=== PATIENT | male | born 1955 | race Caucasian/White ===

== ENCOUNTER 2019-06-12 09:45 | Inpatient (IN) | payer OTHER ==
--- NOTE | 2019-06-12 09:57 | ED ---
Shortness of Breath - HPI Summary HPI Summary: This pt is a 64 y/o male presenting to [facility] referred by PCP for increased SOB and left leg swelling and redness for the past couple of days. Pt reports he went to see his PCP today for left leg swelling and redness and was referred to the ED for respiratory distress. states pt has swelling in left leg that radiates up to his testicles. Pt reports his left toes are numb. Pt denies any left leg pain. Pt endorses fatigue, cough, congestion, runny nose. Denies fever , chest pain, abd pain, dysuria. Pt states he fell on ice a few weeks ago where he "landed flat on his face" and "caught left knee." He notes after his fall he initially had pain on left hand. Denies any left knee pain today. The last time he saw his PCP prior to today was 2 weeks ago and was started on diuretics (Furosemide). Today his PCP doubled his dose of diuretics. PMHx includes COPD, PE, aortic stenosis. Pt is actively smoking, his last cigarette was this morning. Pt used to take anticoagulants 5-6 years ago for about 6 months and was discontinued by his PCP. He also used to take antihypertensive medications in the past but unable to remember the name. - History of Current Complaint Chief Complaint: EDShortnessOfBreath Time Seen by Provider: 06/12/19 09:55 Hx Obtained From: Patient Onset/Duration: Lasting Days, Still Present Timing: Constant Current Severity: Moderate Dyspnea At: Rest Aggravating Factors: Nothing Alleviating Factors: Nothing Associated Signs & Symptoms: Cough (Nonproductive), Nasal Congestion, Edema - and fatigue - Allergy/Home Medications Allergies/Adverse Reactions: Allergies Allergy/AdvReac Type Severity Reaction Status Date / Time No Known Allergies Allergy Verified 06/12/19 09:50 Home Medications: Home Medications Furosemide TAB* [Lasix TAB*] 20 mg PO DAILY 06/12/19 [History Confirmed 06/12/19 ] Meloxicam(NF) [Mobic(NF)] 15 mg PO DAILY 06/12/19 [History Confirmed 06/12/19] Potassium Chlor TAB* [Klor Con ER TAB*] 10 meq PO DAILY 06/12/19 [History Confirmed 06/12/19] PMH/Surg Hx/FS Hx/Imm Hx Endocrine/Hematology History: Denies: Hx Diabetes, Hx Thyroid Disease Cardiovascular History: Reports: Other Cardiovascular Problems/Disorders - aortic stenosis Denies: Hx Hypertension Respiratory History: Reports: Hx Pneumonia - 3 years ago, Hx Pulmonary Embolism Denies: Hx Asthma, Hx Chronic Obstructive Pulmonary Disease (COPD) GI History: Denies: Hx Ulcer - Surgical History Surgical History: Yes Surgery Procedure, Year, and Place: tonsillectomy Infectious Disease History: No Infectious Disease History: Denies: Hx Clostridium Difficile, Hx Hepatitis, Hx Human Immunodeficiency Virus (HIV), History Other Infectious Disease, Traveled Outside the [place] in Last 30 Days - Family History Known Family History: Positive: Cardiac Disease, Diabetes - Social History Alcohol Use: None Substance Use Type: Reports: None Smoking Status (MU): Heavy Every Day Tobacco Smoker Type: Cigarettes Amount Used/How Often: 1ppd Review of Systems Positive: Fatigue. Negative: Fever, Chills ENT: Other - POSITIVE: congestion Positive: Nasal Discharge Negative: Chest Pain Positive: Shortness Of Breath, Cough Negative: Abdominal Pain Negative: dysuria Positive: Edema - in left leg. Negative: Other - NEGATIVE: left knee pain Skin: Other - POSITIVE: left leg redness Positive: Numbness - toes All Other Systems Reviewed And Are Negative: Yes Physical Exam - Summary Physical Exam Summary: Constitutional: Well-developed, Well-nourished, Alert. Skin: Warm, Dry. No break in the skin. HENT: Normocephalic; Atraumatic Eyes: Conjunctiva normal Neck: Musculoskeletal ROM normal neck. (-) JVD, (-) Stridor, (-) Tracheal deviation Cardio: Rhythm regular, rate normal, Heart sounds normal; Intact distal pulses; The pedal pulses are 2+ and symmetric. Radial pulses are 2+ and symmetric. Pulmonary/Chest wall: Wheezes and diminished throughout, but with prolonged expiratory phase. Abd: Periumbilical reducible hernia, otherwise soft and nontender. Musculoskeletal: bilateral lower extremity edema, more significant in the left than the right. Approximately 3 cm or more circumference of edema in left lower extremity compared to the right lower extremity. Pitting edema on left lower extremity. Left lower extremity is warm to touch. Left lower extremity is red with streaking in medial aspect of left leg. Good pulses on bilateral LE. Healed contusion to the anterior lateral left knee. Neuro: Alert, Oriented x3 Psych: Mood and affect Normal Triage Information Reviewed: Yes Vital Signs On Initial Exam: Initial Vitals Temp Pulse Resp BP Pulse Ox 97.9 F 79 26 140/90 88 06/12/19 09:45 06/12/19 09:45 06/12/19 09:45 06/12/19 09:45 06/12/19 09:45 Vital Signs Reviewed: Yes Procedures - Sedation Patient Received Moderate/Deep Sedation with Procedure: No Diagnostics - Vital Signs Vital Signs Temp Pulse Resp BP Pulse Ox 06/12/19 09:45 97.9 F 79 26 140/90 88 - Laboratory Result Diagrams: 06/12/19 10:25 06/12/19 10:25 Lab Statement: Any lab studies that have been ordered have been reviewed, and results considered in the medical decision making process. - CT Chest CTA CT Interpretation Completed By: Radiologist Summary of CT Findings: IMPRESSION: 1. Pulmonary emboli are seen in the segmental arteries perfusing the right upper and milddle lobes. 2. Coronary artery disease. Calcified aortic valve. Mitral valve annulus calcification. 3. Interstitial pulmonary edema with a small left pleural effusion. 4. Ectatic main pulmonary artery. Severe left glenohumeral osteoarthropathy. These findings were discussed with Dr. Davie Benjamin at 12:49 PM on June 12, 2019. Dr. Christianson has reviewed this report. - Ultrasound No standard instances Ultrasound Interpretation Completed By: Radiologist Summary of Ultrasound Findings: US of bilateral lower extremities IMPRESSION: No right lower extremity deep vein thrombosis. No left lower extremity deep vein thrombosis. Dr. Christianson has reviewed this report. - EKG 10:01 Cardiac Rate: NL - at 68 bpm EKG Rhythm: Sinus Rhythm Summary of EKG Findings: EKG at 10:01 shows normal sinus rhythm at a rate of [address] and T wave abnormalities in the anterior and lateral leads. No STEMI. QTc is normal. 10:46 Cardiac Rate: Bradycardia - at 57 bpm EKG Rhythm: Sinus Bradycardia EKG Comparison: Other - Compared to prior 45 minutes ago, heart rated dropped from 68 to 57 bpm. Summary of EKG Findings: EKG at 10:46 shows sinus bradycardia at a rate of [address] and T wave abnormalities in the anterior and lateral leads. No STEMI. Compared to prior 45 minutes ago, heart rated dropped from 68 to 57 bpm. Re-Evaluation - Re-Evaluation First Eval Re-Evaluation Time: 13:11 Comment: Discussed CTA results with patient. He weighs 280 lbs. Course/Dx - Course Assessment/Plan: Pt is a 64 y/o male presenting to [facility] referred by PCP for increased SOB and left leg swelling and redness for the past couple of days. PMHx includes COPD, PE, aortic stenosis. Pt is actively smoking, his last cigarette was this morning. Labs obtained. Troponin is 0.03. Two EKGs obtained and both show normal sinus rhythm with nonspecific ST and T wave abnormalities in the anterior and lateral leads. No STEMI. QTc is normal. Second EKG shows heart rate decreased from 68 to 57 bpm. US of bilateral lower extremity shows no right lower extremity deep vein thrombosis. No left lower extremity deep vein thrombosis. Chest CTA reveals 1. Pulmonary emboli are seen in the segmental arteries perfusing the right upper and milddle lobes. 2. Coronary artery disease. Calcified aortic valve. Mitral valve annulus calcification. 3. Interstitial pulmonary edema with a small left pleural effusion. 4. Ectatic main pulmonary artery. Severe left glenohumeral osteoarthropathy. In the ED course the pt was given Decadron, Atrovent, Zosyn, 127 mg Lovenox. Discussed the case with Dr. Downs, hospitalist, who accepted the patient for admission. Dx: left lower extremity cellulitis, worsening peripheral edema likely secondary to newly diagnosed CHF, pulmonary emboli. - Diagnoses Provider Diagnoses: Cellulitis of left lower extremity, Peripheral edema, Pulmonary emboli - Physician Notifications Discussed Care of Patient With: Lamont Downs - hospitalist Time Discussed With Above Provider: 13:39 Discharge ED - Sign-Out/Discharge Documenting (check all that apply): Patient Departure - Admit to [facility] - Discharge Plan Condition: Stable Disposition: ADMITTED TO [facility] - Billing Disposition and Condition Condition: STABLE Disposition: Admitted to [facility] - Attestation Statements Document Initiated by Scribe: Yes Documenting Scribe: Sheri Chaves Provider For Whom Paola is Documenting (Include Credential): Balaji Christianson MD Scribe Attestation: Sheri Begum scribed for Balaji Christianson MD on 06/12/19 at 1842. Scribe Documentation Reviewed: Yes Provider Attestation: The documentation as recorded by the scribe, Sheri Chaves accurately reflects the service I personally performed and the decisions made by me, Balaji Christianson MD Status of Scribe Document: Viewed
[2019-06-12] MEDS ORDERED: Dexamethasone IV* 4 MG/ML 5 ML VIAL (20 MG) IVPB ONE (10:10)
[2019-06-12] MEDS: Ipratropium 0.5MG/2.5ML NEB* 0.5 MG/2.5 ML NEB.SOLN INH SCH ×3 (10:35→10:43)
[2019-06-12 10:41] LABS: Activated Partial Thrombo Time 35.1 seconds (26.0-38.0); INR 0.96 (0.82-1.09)
[2019-06-12] MEDS ORDERED: Piperacillin/Tazobac ADVAN(*) 3.375 GM in NS 0.9% 100 ML* 100 ML IVPB ONE (10:43)
[2019-06-12 10:49] LABS: BUN/Creatinine Ratio 22.9 (8-20); Calcium 8.2 mg/dL (8.6-10.3); EGFR African American 137.8 (>60); EGFR Non-African American 113.9 (>60); Magnesium 1.9 mg/dL (1.9-2.7); Potassium 4.5 mmol/L (3.5-5.0)
[2019-06-12 10:54] LABS: Troponin I 0.03 ng/mL (<0.03)
[2019-06-12 10:59] LABS: ABS Eosinophils 0.2 10^3/ul (0-0.6); ABS Lymphocytes 0.9 10^3/ul (1.0-4.8); ABS Monocytes 0.8 10^3/ul (0-0.8); ABS Neutrophils 4.3 10^3/ul (1.5-7.7); Eosinophil % 2.6 %; Hematocrit 39 % (42-52); Hemoglobin 12.9 g/dL (14.0-18.0); Lymphocyte % 14.6 %; Mean Corpuscular HGB Conc 34 g/dL (31-36); Mean Corpuscular Hemoglobin 30 pg (27-31); Mean Corpuscular Volume 91 fL (80-94); Mean Platelet Volume 8.5 fL (7.4-10.4); Platelet Count 168 10^3/uL (150-450); Red Blood Count 4.27 10^6 /uL (4.18-5.48); Red Cell Distribution Width 18 % (10-15); White Blood Count 6.2 10^3/uL (3.5-10.8)
[2019-06-12] MEDS ORDERED: Iohexol 350* (CONTRAST) 500 ML MDV IV ONE (11:59)
[2019-06-12] MEDS ORDERED: Enoxaparin(*) 150 MG/ML 1 ML SYRINGE SUBCUT ONE (13:11)
[2019-06-12] MEDS ORDERED: Perflutren Lipid Microsphere* 3 ML VIAL ONE (15:02)
[2019-06-12] MEDS ORDERED: Furosemide IV* 10 MG/ML VIAL (40 MG) IV ONE (15:10)
[2019-06-12] MEDS ORDERED: Magnesium Sulfate 1 GM IV* 1 GM/100 ML BAG IV ONE (15:14)
[2019-06-12 15:49] LABS: C Reactive Protein 16.71 mg/L (<8.01)
[2019-06-12] MEDS ORDERED: Albuterol/Ipratropium NEB.SOL* Albuterol 2.5 MG/Ipratropium 0.5 MG 3 ML INH PRN (17:17)
--- NOTE | 2019-06-12 17:30 | ECHO ---
*[facility]* [place] [address] Fax #: [phone] Transthoracic Echocardiogram Patient: Gray Esquivel : 1955 Study Date: 06/12/2019 Age: 64 Gender: M HR: 57 bpm Height: 74 in /188 cm BSA: 2.51 m^2 Weight: 280.4 lb /127.5 kg BMI: 36.1 kg/m^2 *Occupational Therapist Assistants: * Yumiko Vasquez RDCS RN *Referring Physician: * Lamont Downs *Reading Physician: * Phil Arenas MD Indications: SOB. Pulmonary embolism. History: Aortic stenosis. COPD. Pulmonary Embolism. Risk factors: Current tobacco use. Obese. Conclusions Summary: - Left ventricle: The cavity size is normal. Wall thickness is mildly increased. Systolic function is normal. The estimated ejection fraction is 60-65%. Wall motion is normal; there are no regional wall motion abnormalities. - Right ventricle: The cavity size is normal. Systolic function is normal. - Left atrium: The atrium is moderately dilated. - Mitral valve: The findings are consistent with mild stenosis. The mean diastolic gradient is 4.0 mm Hg. - Aortic valve: A bicuspid morphology cannot be excluded. The leaflets are moderately thickened and moderately calcified. The findings are consistent with severe stenosis. The peak systolic velocity is 4.32 m/sec. The mean systolic gradient is 44.7 mm Hg. The valve area index by the velocity-time integral method is 0.41 cm^2/m^2. - Tricuspid valve: There is mild regurgitation. - Pulmonary arteries: Systolic pressure is severely increased, estimated to be 68 mm Hg. Recommendations: Compared to prior study from 12/2018, findings are similar Study data: Transthoracic echocardiogram. Procedure: Transthoracic echocardiography was performed. Complete 2D, spectral Doppler, and color flow Doppler. Location: Procedure room. Rhythm: Bradycardia. Findings Left ventricle: The cavity size is normal. Wall thickness is mildly increased. Systolic function is normal. The estimated ejection fraction is 60-65%. Wall motion is normal; there are no regional wall motion abnormalities. Doppler parameters are consistent with abnormal left ventricular relaxation (grade 1 diastolic dysfunction). Right ventricle: The cavity size is normal. Systolic function is normal. Left atrium: The atrium is moderately dilated. Right atrium: The atrium is mildly to moderately dilated. Mitral valve: Not well visualized. The Mitral valve annulus appears moderately calcified. The findings are consistent with mild stenosis. There is mild regurgitation. Aortic valve: A bicuspid morphology cannot be excluded. The leaflets are moderately thickened and moderately calcified. The findings are consistent with severe stenosis. There is mild regurgitation. Tricuspid valve: Not well visualized. There is mild regurgitation. Pulmonic valve: Not well visualized. There is no significant regurgitation. Aorta: Aortic root: The aortic root is not dilated. Ascending aorta: The ascending aorta is not visualized. Aortic arch: The aortic arch is not dilated. Pericardium: There is no significant pericardial effusion. Pulmonary arteries: Not well visualized. Systolic pressure is severely increased, estimated to be 68 mm Hg. Systemic veins: Inferior vena cava: The vessel is dilated. There is (< 50%) respiratory change in the IVC dimension. Measurements Left ventricle Value Ref Aortic valve Value Ref CRISTIANO, LAX 4.8 cm 4.2 - 5.8 Carol diam, ED 2.4 cm ----- ESD, LAX 3.8 cm 2.5 - 4.0 Carol diam/bsa, ED 1.0 cm/m^2 ----- FS, LAX (L) 21 % 25 - 43 Peak v, S 4.32 m/sec ----- PW, ED (H) 1.2 cm 0.6 - 1.0 VTI, S 123.4 cm ----- IVS/PW, ED 0.91 Mean grad, S 44.7 mm Hg ----- E', lat carol, TDI (L) 6.9 cm/sec >=10.0 Peak grad, S 74.7 mm Hg ----- E/e', lat carol, 26 LVOT/AV, VTI ratio 0.29 --- -- TDI NOEL, VTI 1.02 cm^2 ----- E', med carol, TDI (L) 6.6 cm/sec >=7.0 NOEL/bsa, VTI 0.41 cm^2/m^2 ----- E/e', med carol, 27 NOEL, Vmax 1.10 cm^2 --- -- TDI AR peak v 4.43 m/sec ----- E', avg, TDI 6.8 cm/sec AR PHT 528 ms --- -- E/e', avg, TDI (H) 26 <=14 AR peak grad 78 mm Hg ----- LVET 400 ms Mitral valve Value Ref LVOT Value Ref Peak E 1.77 m/sec ----- Diam, S 2.10 cm Peak A 1.32 m/sec ----- Area 3.5 cm^2 Decel time 394 ms ----- Peak oswaldo, S 1.37 m/sec PHT 139 ms ----- VTI, S 36.4 cm Mean grad, D 4.0 mm Hg ----- Peak grad, S 7 mm Hg Peak grad, D 13.0 mm Hg ----- Mean grad, S 5 mm Hg Peak E/A ratio 1.3 ----- SV 155 ml MVA, PHT 1.6 cm^2 ----- SV/bsa 62 ml/m^2 Pulmonic valve Value Ref Ventricular septum Value Ref Peak v, S 1.29 m/sec ----- IVS, ED (H) 1.1 cm 0.6 - 1.0 Peak grad, S 7.0 mm Hg ----- Right ventricle Value Ref Tricuspid valve Value Ref AW thickness, ED (H) 1.0 cm 0.1 - 0.5 TR peak v (H) 3.65 m/sec <=2.8 CRISTIANO, LAX 3.6 cm Peak RV-RA grad, S 53 mm Hg ----- CRISTIANO minor ax, A4C (H) 3.8 cm 1.9 - 3.5 mid Aortic root Value Ref Pressure, S 68 mm Hg Root diam 3.4 cm <4.5 Left atrium Value Ref Aortic arch Value Ref AP dim, ES (H) 5.20 cm 3.00 - Arch diam 2.8 cm ----- 4.00 ML dim, A4C 4.4 cm Decending aorta Value Ref SI dim, A4C 7.0 cm Dayanna peak oswaldo 1.02 m/sec ----- Vol/bsa, ES, 1-p 37 ml/m^2 12 - 37 A4C Pulmonary artery Value Ref Vol/bsa, ES, A/L (H) 47 ml/m^2 16 - 34 Pressure, S 68.0 mm Hg ----- Right atrium Value Ref Inferior vena cava Value Ref SI dim, ES (H) 6.2 cm 3.4 - 5.3 Diam 3.0 cm ----- ML dim, ES, A4C (H) 5.9 cm 2.6 - 4.4 SI dim, ES, A4C (H) 6.2 cm 3.4 - 5.3 SI dim/bsa, ES, 2.5 cm/m^2 1.8 - 3.0 A4C Estimated RAP 15 mm Hg Legend: (L) and (H) ambreen values outside specified reference range. Prepared and electronically signed by Phil Arenas MD 06/12/2019 17:30
--- NOTE | 2019-06-12 19:08 | HP ---
HISTORY AND PHYSICAL: DATE OF ADMISSION: 06/12/19 ADMITTING PROVIDER: Lamont Downs MD. PRIMARY CARE PROVIDER: Dr. Acosta. CHIEF COMPLAINT: Left lower extremity swelling, redness, warmth; shortness of breath. HISTORY OF PRESENT ILLNESS: Gray Esquivel is a 64-year-old male with past medical history of severe aortic stenosis, hypertension, obesity, and current longtime smoker. He also has a history of pulmonary embolism, for which he was on warfarin for between 6 and 8 months. This was after the setting when he developed aspiration pneumonia and was at [facility] for 9 days before being transferred up to [facility] for 14 days. Sounds like it was thought to be provoked. The patient is a poor historian in terms of time, but at some point before 05/06/19, he fell and slipped on ice onto his left side, developed substantial bruising and then swelling, redness on his lower left leg. He eventually saw Dr. Acosta on likely 05/06/19 and was started on doxycycline 100 mg p.o. b.i.d. for 14 days. On 05/13/19, he was started on Lasix 20 mg every day for also swelling. He says that the redness seemed to improve a little bit after the doxy. For the last 2 days now, he has had increased lower extremity edema in both legs, initially the left one was much bigger and still is actually. He followed up in his primary care office today and was found to be more edematous, was told to increase his Lasix to 40 mg a day and was sent to the ER for further evaluation. 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 He was evaluated by Dr. Arenas after an echo on 01/20/19 showed EF of 60% to 65% with severe aortic stenosis and aortic valve area of 0.47. He had a stress echo on 02/05/19, which was stopped early because of bilateral leg fatigue, he achieved 4.6 METs and was of note referred to Dr. Vaca. It does not seem like he has followed up with Dr. Vaca or necessarily known about that recommendation. His initial workup in the emergency room included a CT chest angiogram, which did demonstrate pulmonary emboli seen in the segmental arteries perfusing the right upper and middle lobes , also interstitial pulmonary edema with small left pleural effusion. He was started on 1 mg/kg Lovenox and given concern for angry appearing left leg with warmth and redness, Zosyn and was referred to the hospitalist service for admission. BNP has since returned at 299, CRP 16. He had ABG, which showed 7.36, pCO2 of 54, pO2 of 54, bicarb 27.4. Additionally in the emergency room, he got 3 DuoNeb, which he did feel helped his breathing. He also had duplex Dopplers which showed negative, no evidence of DVT in either leg. PAST MEDICAL HISTORY: Severe aortic stenosis, hypertension, obesity, current smoker, remote likely provoked PE in the setting of prolonged illness, diabetes. MEDICATIONS: 1. The patient was recently prescribed lisinopril 10 mg today. He has never taken this. 2. Potassium chloride 10 mEq, also prescribed today. 3. Meloxicam 15 mg every day. 4. Lasix recently increased from 20 mg he stated to 40 mg, he has not made that switch yet as it just happened today. FAMILY HISTORY: His father of diabetic complications in his 50s. His mother is 88 and a picture of health. He has 2 sisters, 1 with diabetes and 1 with resolved diabetes. They have 3 daughters that are healthy. 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 He does not drink alcohol. No drug use. He desires to be a full code. His medical surrogate is his Maeve Esquivel. He is a 1 pack per day smoker for the last 30 years. REVIEW OF SYSTEMS: A complete 14-point review of systems negative except as per HPI. He does have somewhat chronic cough. It is usually nonproductive. He denies any chest pain, abdominal pain. PHYSICAL EXAMINATION GENERAL APPEARANCE: No acute distress. VITAL SIGNS: Temperature 97.9; pulse rate 53; respiratory rate 14; satting initially 88% on room air, now 93% to 96% on 2 L; blood pressure 150/66. HEENT: Normocephalic, atraumatic. Pupils equal, round, and reactive to light. Extraocular motions intact. No scleral icterus. LUNGS: Decreased breath sounds. No clear rhonchi, rales, or wheezing. CARDIO: Regular rate and rhythm. No murmurs, rubs, or gallops. ABDOMEN: Soft, nontender, nondistended. No rebound. No guarding. EXTREMITIES: Warm, well perfused. There is 1 to 2+ pitting edema in the right leg and 2+ pitting edema in the left leg extending up to above the thigh. There is some redness and warmth, most prominent behind the left knee. There is some purplish discoloration of the right second and third toe bases superiorly. NEURO: Cranial nerves II through XII intact. Moving all extremities. DIAGNOSTIC STUDIES/LAB DATA: White count 6.2, hemoglobin 12.9, hematocrit 39, platelets 168. INR 0.96. VBG; pH 7.36, pCO2 of 54, pO2 of 54, bicarb 27.4. Sodium 140, potassium 4.5, chloride 107, carbon dioxide 31, BUN 16, creatinine 0.70, glucose 101, calcium 8.2, magnesium 1.9. Troponin 0.03 and return 0.02, CRP 16.7, BNP is 299. Imaging: CTA chest shows impression: 1. Pulmonary emboli seen in the segmental arteries perfusing the right upper and middle lobes. 2. Coronary artery disease, calcified aortic valve, mitral valve annulus calcification. 3. Interstitial pulmonary edema with small left pleural effusion. 4. Ectatic main pulmonary artery. 5. Severe left glenohumeral osteoarthropathy. Duplex Doppler shows no right or left lower deep vein thrombosis. EKG demonstrated normal sinus rhythm with PVCs. No ST elevations or depressions. Repeat shows sinus bradycardia, there is kind of a borderline [address] elevation in II and aVF. ASSESSMENT AND PLAN: Gray Esquivel is a 64-year-old male with past medical history of known severe aortic stenosis, 30-pack year smoking, and hypertension , presenting with increased lower extremity edema now bilaterally with some warmth and erythema despite outpatient doxycycline about a month ago for 14 days , also short of breath with evidence of segmental pulmonary embolism in the right upper and middle lobes and BNP elevation to 299 with evidence of volume overload. He is actually a diabetic with A1c of 6.6 on 12/16/18. 1. Pulmonary embolism. He has been started on Lovenox 1 mg/kg twice a day. I am going to continue that for now. We will follow up echocardiogram. He does have elevated troponin and BNP. 2. Aortic stenosis, last known was severe back on 01/20/19. He has had echocardiogram repeated here. I am concerned about his increased shortness of breath, edema, and presyncopal like episodes. He likely needs evaluation for TAVR with Dr. Vaca, which has been recommended in the past. I will follow formal echocardiogram results. 3. Congestive heart failure/volume overload. I am going to cautiously diurese him given his known aortic stenosis with 40 mg IV now and monitor his response to that. Strict I's and O's and daily weights. 4. Mild cellulitis on the left lower extremity. Reportedly, this has improved substantially since he took his 1 dose of Zosyn in the emergency room. He still some slight warmth behind the left knee and some erythema. I am going to change him to cefazolin 2 g for q.8 hours given his body size greater than 120 kg. 5. Smoking. Give him a nicotine patch. Encouraged cessation. He has never had pulmonary function tests done. He does have a chronic cough. He is on no inhalers. I will add Dulera and Spiriva and recommend PFTs as an outpatient. 6. Hypertension. He is in 150s here, as high as 182/115. Recently started on lisinopril. I am going to hold off that until tomorrow. Given the diuresis, I do not want to drop his preload too much. 7. Code status: He is a full code. 8. Diabetes. Per A1c criteria in November. He just uses diet. He did have hyperglycemia here, put him on some fingersticks and repeat A1c. 9. FEN: He can eat a heart-healthy diet, carbohydrate consistent. [id number]/[facility] #: [id number] [facility]
[2019-06-12] MEDS: Mometasone/Formoter 200/5 MDI INH SCH (19:55)
[2019-06-12] MEDS: ceFAZolin 2 GM PREMIX in ORs 2 GM/50 ML BAG IVPB SCH (21:39)
[2019-06-12] MEDS: Nicotine Patch Removal NOTE FOLLOW UP SCH (21:39)
[2019-06-13] MEDS: Enoxaparin(*) 100 MG/ML SYR SUBCUT SCH ×2 (03:05→14:08)
[2019-06-13] MEDS: ceFAZolin 2 GM PREMIX in ORs 2 GM/50 ML BAG IVPB SCH ×3 (06:03→21:10)
[2019-06-13 06:51] LABS: Hematocrit 39 % (42-52); Hemoglobin 12.6 g/dL (14.0-18.0); Mean Corpuscular HGB Conc 33 g/dL (31-36); Mean Corpuscular Hemoglobin 30 pg (27-31); Mean Corpuscular Volume 91 fL (80-94); Red Blood Count 4.23 10^6 /uL (4.18-5.48); Red Cell Distribution Width 17 % (10-15)
[2019-06-13 07:07] LABS: BUN/Creatinine Ratio 20.6 (8-20); Calcium 8.7 mg/dL (8.6-10.3); EGFR African American 142.5 (>60); EGFR Non-African American 117.8 (>60); Potassium 4.2 mmol/L (3.5-5.0)
[2019-06-13 07:26] LABS: ABS Lymphocytes 0.7 10^3/ul (1.0-4.8); ABS Monocytes 0.7 10^3/ul (0-0.8); ABS Neutrophils 5.5 10^3/ul (1.5-7.7); Eosinophil % 0.4 %; Lymphocyte % 10.7 %; Mean Platelet Volume 8.6 fL (7.4-10.4); Platelet Count 146 10^3/uL (150-450)
[2019-06-13] MEDS: Mometasone/Formoter 200/5 MDI INH SCH ×2 (07:53→19:36)
[2019-06-13] MEDS: SPIRIVA Respimat* (tiotropium) 2.5 mcg/inh Inhaler INH SCH (07:54)
[2019-06-13] MEDS: Nicotine PATCH 14 MG/24 HR* PATCH TRANSDERM SCH (08:35)
[2019-06-13] MEDS ORDERED: Furosemide IV* 10 MG/ML VIAL (40 MG) IV ONE (12:35)
--- NOTE | 2019-06-13 18:25 | PN ---
Subjective Date of Service: 06/13/19 Interval History: no acute events overnight, afebrile feeling much better, breathing is easier. Less redness/warmth to left lower leg. net negative 2.1L with diuresis. [employer] stable. no chest pain, f/c/n/v, abdominal pain. cardiology consulted (Dr. Arenas who is his outpatient senior account clerk) Objective Active Medications: Acetaminophen (Tylenol Tab*) 650 mg PO Q6H PRN PRN Reason: PAIN - MILD Albuterol/Ipratropium (Duoneb (Albuterol 2.5 Mg/Ipratropium 0.5 Mg)) 1 neb INH Q4H PRN PRN Reason: SOB/WHEEZING Enoxaparin Sodium (Lovenox(*)) 130 mg SUBCUT Q12H [facility] Last Admin: 06/13/19 14:08 Dose: 130 mg Cefazolin Sodium/Dextrose (Kefzol 2 Gm Premix In Ors(*)) 2 gm in 50 mls @ 100 mls/hr IVPB Q8HR [facility] Last Admin: 06/13/19 14:09 Dose: 100 mls/hr Mometasone Furoate/Formoterol Fumar (Dulera 200/5 Mdi*) 2 puff INH BID [facility] Last Admin: 06/13/19 07:53 Dose: 2 puff Nicotine (Nicotine Patch 14 Mg/24 Hr*) 1 patch TRANSDERM DAILY [facility] Last Admin: 06/13/19 08:35 Dose: 1 patch Pharmacy Profile Note (Nicotine Patch Removal Note*) 1 note FOLLOW UP 2100 [facility] Last Admin: 06/12/19 21:39 Dose: Not Given Tiotropium [place] (Spiriva Respimat 2.5 Mcg) 2 puff INH DAILY [facility] Last Admin: 06/13/19 07:54 Dose: 2 puff Vital Signs - 8 hr 06/13/19 06/13/19 11:15 15:15 Temperature 97.7 F Pulse Rate 64 58 Respiratory 20 18 Rate Blood Pressure 147/87 142/68 (mmHg) O2 Sat by Pulse 96 93 Oximetry Oxygen Devices in Use Now: None Appearance: NAD Neck: NL Appearance and Movements; NL JVP Respiratory: Symmetrical Chest Expansion and Respiratory Effort, Clear to Auscultation Abdominal: NL Sounds; No Tenderness; No Distention Extremities: - - 2+ edema b/l Skin: - - largely resolved erythema and only minimal warmth on left lower extremity Neurological: Alert and Oriented x 3 Nutrition: Taking PO's Result Diagrams: 06/13/19 06:31 06/13/19 06:31 Additional Lab and Data: Laboratory Results - last 24 hr 06/12/19 06/13/19 06/13/19 10:25 06:31 06:31 WBC 7.0 RBC 4.23 Hgb 12.6 L Hct 39 L MCV 91 MCH 30 MCHC 33 RDW 17 H Plt Count 146 L MPV 8.6 Neut % (Auto) 79.0 Lymph % (Auto) 10.7 Giles % (Auto) 9.7 Eos % (Auto) 0.4 Baso % (Auto) 0.2 Absolute Neuts (auto) 5.5 Absolute Lymphs (auto) 0.7 L Absolute Monos (auto) 0.7 Absolute Eos (auto) 0.0 Absolute Basos (auto) 0.0 Absolute Nucleated RBC 0.0 Nucleated RBC % 0.0 Sodium 139 Potassium 4.2 Chloride 104 Carbon Dioxide 29 Anion Gap 6 BUN 14 Creatinine 0.68 Est GFR ( Amer) 142.5 Est GFR (Non-Af Amer) 117.8 BUN/Creatinine Ratio 20.6 H Glucose 120 H Calcium 8.7 NT-Pro-B Natriuret Pep 1425 H Microbiology and Other Data: Microbiology 06/12/19 10:51 Blood Venous Aerobic Blood Culture - Preliminary No Growth Day 1 06/12/19 10:51 Blood Venous Anaerobic Blood Culture - Preliminary No Growth Day 1 Assess/Plan/Problems-Billing Assessment: 64 yo male PMH severe aortic stenosis, HTN, obesity, long time smoker (likely undiagnosed COPD), presenting from PCP office with progressive edema, left leg cellultitis (since a mechanical fall on ice) and shortness of breath. Found to have segmental pulmonary embolisms and be in acute HFpEF exaccerbation on baseline of likely increasingly symptomatic aortic stenosis (often pre-syncopal , HOOD). Planned C 06/16 in anticipation of need for aortic surgery. Diuresing. - Patient Problems (1) Severe aortic stenosis Current Visit: Yes Status: Acute Code(s): I35.0 - NONRHEUMATIC AORTIC (VALVE ) STENOSIS SNOMED Code(s): 76811358 Comment: Repeat ECHO still shows severe (NOEL 0.41, can't exclude bicuspid) . Has been having frequent presyncopal events, especially if he reaches above his head. HOOD. Consulted with Dr. Arenas who is also his outpatient senior account clerk and recommendation is to pursue LHC with anticipation that he may need TAVR or other aortic valve intervention in coming weeks. (2) Pulmonary emboli Current Visit: Yes Status: Acute Code(s): I26.99 - OTHER PULMONARY EMBOLISM WITHOUT ACUTE COR PULMONALE SNOMED Code(s): 96964023 Comment: Was started on lovenox 1 mg/kg in ED and this was continued. Dr. Arenas recommended to continue this until potential LHC on Saturday 06/16 after which he can likely be transitioned to a DOAC. Duplex dopplers without DVT b/l (3) (HFpEF) heart failure with preserved ejection fraction Current Visit: Yes Status: Acute Code(s): I50.30 - UNSPECIFIED DIASTOLIC ( CONGESTIVE) HEART FAILURE SNOMED Code(s): 028266943 Comment: got 40mg IV lasix on admission and again today. Net negative 2.1L with very dilute urine. Significant lower extremity edema. Daily weights, strict ios (4) Cellulitis Current Visit: Yes Status: Acute Code(s): L03.90 - CELLULITIS, UNSPECIFIED SNOMED Code(s): 798963553 Comment: had been treated for 14 days with doxy as an outpatient. Got 1 dose zosyn in ED (afterwhich time the erythema and warmth were modest though reportedly more angry appearing prior to the zosyn. Continue cefazolin for now with transition to keflex likely soon. (5) Acute respiratory failure with hypoxia Current Visit: Yes Status: Acute Code(s): J96.01 - ACUTE RESPIRATORY FAILURE WITH HYPOXIA SNOMED Code(s): 54756123 Comment: improving. secondary to PE, acute HFpEF, severe pHTN (RVSP 68mmHg) and also likely has undiagnosed COPD given substantial and current smoking with chronic cough. new dulera, spiriva. duonebs q4h prn. (6) Smoker Current Visit: Yes Status: Acute Code(s): F17.200 - NICOTINE DEPENDENCE, UNSPECIFIED, UNCOMPLICATED SNOMED Code(s): 90781196 Comment: nicotine patch. Status and Disposition: medicine inpatient, planned LHC on 06/16. Independent with likely disposition being home.
--- NOTE | 2019-06-13 18:57 | CONSULT ---
Subjective Date of Service: 06/13/19 Interval History: Admission Date: 06/12/19 Consult date 06/13/2019 Service: Hospitalist PRIMARY CARE PROVIDER: Dr. Acosta CC: Shortness of breath, edema Reason for consult: Aortic stenosis HISTORY OF PRESENT ILLNESS: Gray Esquivel is a 64-year-old man with a history as below known to me from outpatient cardiology practice. He states he had been doing well until 5 weeks ago when he slipped and fell and ice/leaves. He regularly took nsaids prior to that but increased dosing to 1200 mg daily of ibuprofen until recently when pain started subsiding. He had also been on meloxicam. Tylenol is ineffective of pain. About that time he noticed left leg swelling that has progressed. He had an outpatient course of antibiotics and doxycycline for the left leg and was also plaed on lasix 20 mg daily. 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 His left leg had swollen in the past but recently right leg started swelling. He has no chest discomfort or exertional presyncope/syncope. He does get lightheaded if lifts his arms above his head head. Patient saw Dr. Acosta day of admission and now found with volume overload, left leg cellulitis and pulmonary embolism. He has received IV lasix , therapeutic lovenox and IV antibiotics and edema and breathing have improved. Pmhx 1. Severe aortic stenosis 2. HFpEF 3. Severe pulmonary hypertension 4. Obesity 5. Pulmonary embolism bilateral 01/2013 in setting of drug abuse, aspiration pneumonia and hemorrhagic left sided pleural effusion. Had been on warfarin for 6+ months at that time. 6. Osteoarthritis 7. 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 remote drug abuse no current alcohol abuse is Maeve Esquivel FAMILY HISTORY: Father age 66 heart disease and diabetes, details uncertain PGF of heart disease in 50's, details uncertain Allergies: NKDA Medications Active Medications: Acetaminophen (Tylenol Tab*) 650 mg PO Q6H PRN PRN Reason: PAIN - MILD Albuterol/Ipratropium (Duoneb (Albuterol 2.5 Mg/Ipratropium 0.5 Mg)) 1 neb INH Q4H PRN PRN Reason: SOB/WHEEZING Enoxaparin Sodium (Lovenox(*)) 130 mg SUBCUT Q12H [facility] Last Admin: 06/13/19 14:08 Dose: 130 mg Cefazolin Sodium/Dextrose (Kefzol 2 Gm Premix In Ors(*)) 2 gm in 50 mls @ 100 mls/hr IVPB Q8HR [facility] Last Admin: 06/13/19 14:09 Dose: 100 mls/hr Mometasone Furoate/Formoterol Fumar (Dulera 200/5 Mdi*) 2 puff INH BID [facility] Last Admin: 06/13/19 07:53 Dose: 2 puff Nicotine (Nicotine Patch 14 Mg/24 Hr*) 1 patch TRANSDERM DAILY [facility] Last Admin: 06/13/19 08:35 Dose: 1 patch Pharmacy Profile Note (Nicotine Patch Removal Note*) 1 note FOLLOW UP 2100 [facility] Last Admin: 06/12/19 21:39 Dose: Not Given Tiotropium [place] (Spiriva Respimat 2.5 Mcg) 2 puff INH DAILY [facility] Last Admin: 06/13/19 07:54 Dose: 2 puff Home Medications: Furosemide TAB* [Lasix TAB*] 20 mg PO DAILY 06/12/19 [History Confirmed 06/12/19 ] Meloxicam(NF) [Mobic(NF)] 15 mg PO DAILY 06/12/19 [History Confirmed 06/12/19] Potassium Chlor TAB* [Klor Con ER TAB*] 10 meq PO DAILY 06/12/19 [History Confirmed 06/12/19] Review of Systems - Measurements Intake and Output: Intake and Output Last 24 Hours 06/11/19 06/12/19 06/13/19 06/14/19 06:59 06:59 06:59 06:59 Intake Total 700 0 Output Total 2870 800 Balance -2170 -800 Weight 275 lb 12.8 oz Intake: IV Fluids 160 IVPB 100 Oral 440 0 Output: Urine 2870 800 Other: Estimated Void Large # Voids 2 - Review of Systems Constitutional Symptoms: Negative: Weight Gain, Weight Loss, Fever, Night Sweats Dermatology: Negative: Rash, Skin Lesions HEENT: Negative: Change in Hearing, Vertigo Eyes: Negative: Change in Vision, Double Vision Thyroid: Negative: Cold Intolerance, Heat Intolerance, Weight Loss, Weight Gain Pulmonary: Positive: Shortness of Breath, Exercise Intolerance Negative: Hemoptysis, Asthma, Home Oxygen Cardiology: Positive: Shortness of Breath, Edema Negative: Chest Pain, Palpitations, Swelling of Ankles, Peripheral Vascular Dis, Syncope, Paroxysmal Nocturnal Dyspnea, Orthopnea Gastroenterology: Negative: Blood in Stools, Haematemesis, Melena Genital - Urinary: Negative: Dysuria, Hematuria Musculoskeletal: Negative: Joint Pain, Joint Stiffness Review of Systems Statement: All other review of systems negative, unless stated above. Objective Vital Signs: Temp Pulse Resp BP Pulse Ox 97.7 F 58 18 142/68 93 06/13/19 15:15 06/13/19 15:15 06/13/19 15:15 06/13/19 15:15 06/13/19 15:15 Oxygen Devices in Use Now: None Appearance: nad, very pleasant Ears/Nose/Mouth/Throat: Clear Oropharnyx, Mucous Membranes Moist Neck: Trachea Midline, - - uncertain jvp Respiratory: Symmetrical Chest Expansion and Respiratory Effort, Clear to Auscultation Cardiovascular: RRR, - - 3/6 high pitched murmur with soft singular s2 Abdominal: - - soft, obese Extremities: No Clubbing, Cyanosis, - - 2+ left leg edema with erythema, 1+ right leg edema Neurological: Alert and Oriented x 3 Laboratory Results: 06/13/19 06:31 06/13/19 06:31 INR (Anticoag Therapy) 0.96 (0.82-1.09) 06/12/19 10:25 APTT 35.1 seconds (26.0-38.0) 06/12/19 10:25 B-Natriuretic Peptide 299 pg/mL (<=100) H 06/12/19 10:25 06/12/19 06/12/19 06/12/19 10:25 16:15 18:54 Troponin I 0.03 H* 0.02 0.01 Diagnostic Imagin01/2019: 4.6 mets limited by leg discomfort, BP constanza appropriately and LVEf hyperdynamic post-stress 06/12/2019 Transthoracic Echocardiogram Summary: - Left ventricle: The cavity size is normal. Wall thickness is mildly increased. Systolic function is normal. The estimated ejection fraction is 60-65%. Wall motion is normal; there are no regional wall motion abnormalities. - Right ventricle: The cavity size is normal. Systolic function is normal. - Left atrium: The atrium is moderately dilated. - Mitral valve: The findings are consistent with mild stenosis. The mean diastolic gradient is 4.0 mm Hg. - Aortic valve: A bicuspid morphology cannot be excluded. The leaflets are moderately thickened and moderately calcified. The findings are consistent with severe stenosis. The peak systolic velocity is 4.32 m/sec. The mean systolic gradient is 44.7 mm Hg. The valve area index by the velocity-time integral method is 0.41 cm^2/m^2. - Tricuspid valve: There is mild regurgitation. - Pulmonary arteries: Systolic pressure is severely increased, estimated to be 68 mm Hg. Exam Date: 06/12/19 CTA CHEST IMPRESSION: 1. Pulmonary emboli are seen in the segmental arteries perfusing the right upper and middle lobes. 2. Coronary artery disease. Calcified aortic valve.. Mitral valve annulus calcification. 3. Interstitial pulmonary edema with a small left pleural effusion. 4. Ectatic main pulmonary artery. Severe left glenohumeral osteoarthropathy. Exam Date: 06/12/19 IMPRESSION: NO RIGHT LOWER EXTREMITY DEEP VEIN THROMBOSIS. NO LEFT LOWER EXTREMITY DEEP VEIN THROMBOSIS. EKG Data: ekg 06/12/2019 sinus rhythm 57 bpm, no ischemic changes Assessment/Plan 1. Multifactorial symptomatic volume overload 2. Severe aortic stenosis - Echo similar to 12/2018, previous mean gradient 41.7 mmHg 3. HFpEF ("New onset acute diastolic heart failure") 4. Severe pulmonary hypertension 5. Obesity 6. Recurrent PE 7. Cellulitis 8. Remote drug abuse 9. Osteoarthritis 10 Diabetes 11. Tobacco use - Patient was counseled on need for smoking cessation - Start lipitor 40 mg po daily (ordered) - Continue therapeutic lovenox for now. Given recurrent PE would llikely benefit from lifelong anticoagulation - Continue PRN daily IV diuretic - Continue antibiotics per primary service - Tylenol is ineffective for pain. I think NSAIDs contributed to volume overload and decompensation and should not be taking them while on anticoagulation. We discussed tramadol today. He is concerned about taking this due to his previous addiction history but will take some time to consider it. - Patient would benefit from TAVR consideration as an outpatient with Dr. Vaca. Given comorbidities and prior history, would not recommend a metallic valve. Will arrange cardiac catheterization this admission in preparation for this. Hold off on oral anti-coagulation until afterwards. Thank you for allowing me to participate in the cardiovascular care of this patient. Please do not hesitate to contact me with questions or concerns.
[2019-06-13] MEDS: Atorvastatin* 40 MG TAB PO SCH (20:57)
[2019-06-13] MEDS: Nicotine Patch Removal NOTE FOLLOW UP SCH (20:57)
[2019-06-13] MEDS: Acetaminophen TAB* 325 MG PO PRN (20:59)
[2019-06-14] MEDS: Enoxaparin(*) 100 MG/ML SYR SUBCUT SCH ×2 (02:59→14:18)
[2019-06-14] MEDS: ceFAZolin 2 GM PREMIX in ORs 2 GM/50 ML BAG IVPB SCH ×3 (05:20→21:22)
[2019-06-14 06:52] LABS: ABS Eosinophils 0.1 10^3/ul (0-0.6); ABS Lymphocytes 1.7 10^3/ul (1.0-4.8); ABS Monocytes 0.9 10^3/ul (0-0.8); ABS Neutrophils 4.6 10^3/ul (1.5-7.7); Eosinophil % 1.9 %; Hematocrit 38 % (42-52); Hemoglobin 12.6 g/dL (14.0-18.0); Lymphocyte % 23.2 %; Mean Corpuscular HGB Conc 33 g/dL (31-36); Mean Corpuscular Hemoglobin 30 pg (27-31); Mean Corpuscular Volume 89 fL (80-94); Mean Platelet Volume 8.2 fL (7.4-10.4); Nucleated Red Blood Cells % 0.1; Platelet Count 150 10^3/uL (150-450); Red Blood Count 4.23 10^6 /uL (4.18-5.48); Red Cell Distribution Width 17 % (10-15); White Blood Count 7.3 10^3/uL (3.5-10.8)
[2019-06-14 06:55] LABS: Calcium 8.7 mg/dL (8.6-10.3); EGFR African American 137.8 (>60); EGFR Non-African American 113.9 (>60); Potassium 3.7 mmol/L (3.5-5.0)
[2019-06-14] MEDS: Mometasone/Formoter 200/5 MDI INH SCH ×2 (07:37→19:48)
[2019-06-14] MEDS: SPIRIVA Respimat* (tiotropium) 2.5 mcg/inh Inhaler INH SCH (07:37)
[2019-06-14 07:50] LABS: TSH (Thyroid Stimulating Horm) 6.96 mcIU/mL (0.34-5.60)
[2019-06-14] MEDS: Nicotine PATCH 14 MG/24 HR* PATCH TRANSDERM SCH (08:18)
[2019-06-14] MEDS ORDERED: Furosemide IV* 10 MG/ML VIAL (40 MG) IV ONE (08:41)
[2019-06-14] MEDS ORDERED: Potassium Chlor TAB* 10 MEQ TAB.ER PO ONE ×2 (08:41→13:00)
[2019-06-14] MEDS ORDERED: traMADol TAB* 50 MG PO PRN (08:42)
[2019-06-14] MEDS ORDERED: Ondansetron INJ* 2 MG/ML VIAL IV PRN (08:48)
--- NOTE | 2019-06-14 08:49 | PN ---
Subjective Date of Service: 06/14/19 Interval History: f/u volume overload, aortic stenosis excellent diuresis less edematous has ambulated enough to know if dyspneic no chest pain pain is mostly in left ankle - ? gout d/w Dr. [place] Medications Active Medications: Acetaminophen (Tylenol Tab*) 650 mg PO Q6H PRN PRN Reason: PAIN - MILD Last Admin: 06/13/19 20:59 Dose: 650 mg Albuterol/Ipratropium (Duoneb (Albuterol 2.5 Mg/Ipratropium 0.5 Mg)) 1 neb INH Q4H PRN PRN Reason: SOB/WHEEZING Atorvastatin Calcium (Lipitor*) 40 mg PO 2100 [facility] Last Admin: 06/13/19 20:57 Dose: 40 mg Enoxaparin Sodium (Lovenox(*)) 130 mg SUBCUT Q12H [facility] Last Admin: 06/14/19 02:59 Dose: 130 mg Furosemide (Lasix Iv*) 40 mg IV ONCE ONE Stop: 06/14/19 08:42 Cefazolin Sodium/Dextrose (Kefzol 2 Gm Premix In Ors(*)) 2 gm in 50 mls @ 100 mls/hr IVPB Q8HR [facility] Last Admin: 06/14/19 05:20 Dose: 100 mls/hr Mometasone Furoate/Formoterol Fumar (Dulera 200/5 Mdi*) 2 puff INH BID [facility] Last Admin: 06/14/19 07:37 Dose: Not Given Nicotine (Nicotine Patch 14 Mg/24 Hr*) 1 patch TRANSDERM DAILY [facility] Last Admin: 06/14/19 08:18 Dose: 1 patch Pharmacy Profile Note (Nicotine Patch Removal Note*) 1 note FOLLOW UP 2099 [facility] Last Admin: 06/13/19 20:57 Dose: 1 note Potassium Chloride (Klor Con Er Tab*) 40 meq PO ONCE ONE Stop: 06/14/19 08:42 Potassium Chloride (Klor Con Er Tab*) 40 meq PO ONCE ONE Stop: 06/14/19 13:01 Tiotropium [place] (Spiriva Respimat 2.5 Mcg) 2 puff INH DAILY [facility] Last Admin: 06/14/19 07:37 Dose: Not Given Objective Vital Signs: Temp Pulse Resp BP Pulse Ox 97.9 F 60 20 143/67 94 06/14/19 03:40 06/14/19 05:37 06/14/19 05:37 06/14/19 03:40 06/14/19 05:37 Oxygen Devices in Use Now: Nasal Cannula Appearance: nad, very pleasant Ears/Nose/Mouth/Throat: Clear Oropharnyx, Mucous Membranes Moist Neck: Trachea Midline, - - uncertain jvp Respiratory: Symmetrical Chest Expansion and Respiratory Effort, Clear to Auscultation Cardiovascular: RRR, - - 3/6 murmur best heard toward apex with soft singular s2 Abdominal: - - soft, obese Extremities: No Clubbing, Cyanosis, - - trace edema right leg, 1-2+ left leg, left ankle slightly red and painful Neurological: Alert and Oriented x 3 Laboratory Results: 06/14/19 06:23 06/14/19 06:23 INR (Anticoag Therapy) 0.96 (0.82-1.09) 06/12/19 10:25 APTT 35.1 seconds (26.0-38.0) 06/12/19 10:25 B-Natriuretic Peptide 299 pg/mL (<=100) H 06/12/19 10:25 TSH 6.96 mcIU/mL (0.34-5.60) H 06/14/19 06:23 06/12/19 06/12/19 06/12/19 10:25 16:15 18:54 Troponin I 0.03 H* 0.02 0.01 Diagnostic Imagin01/2019: 4.6 mets limited by leg discomfort, BP constanza appropriately and LVEf hyperdynamic post-stress 06/12/2019 Transthoracic Echocardiogram Summary: - Left ventricle: The cavity size is normal. Wall thickness is mildly increased. Systolic function is normal. The estimated ejection fraction is 60-65%. Wall motion is normal; there are no regional wall motion abnormalities. - Right ventricle: The cavity size is normal. Systolic function is normal. - Left atrium: The atrium is moderately dilated. - Mitral valve: The findings are consistent with mild stenosis. The mean diastolic gradient is 4.0 mm Hg. - Aortic valve: A bicuspid morphology cannot be excluded. The leaflets are moderately thickened and moderately calcified. The findings are consistent with severe stenosis. The peak systolic velocity is 4.32 m/sec. The mean systolic gradient is 44.7 mm Hg. The valve area index by the velocity-time integral method is 0.41 cm^2/m^2. - Tricuspid valve: There is mild regurgitation. - Pulmonary arteries: Systolic pressure is severely increased, estimated to be 68 mm Hg. Exam Date: 06/12/19 CTA CHEST IMPRESSION: 1. Pulmonary emboli are seen in the segmental arteries perfusing the right upper and middle lobes. 2. Coronary artery disease. Calcified aortic valve.. Mitral valve annulus calcification. 3. Interstitial pulmonary edema with a small left pleural effusion. 4. Ectatic main pulmonary artery. Severe left glenohumeral osteoarthropathy. Exam Date: 06/12/19 IMPRESSION: NO RIGHT LOWER EXTREMITY DEEP VEIN THROMBOSIS. NO LEFT LOWER EXTREMITY DEEP VEIN THROMBOSIS. EKG Data: ekg 06/12/2019 sinus rhythm 57 bpm, no ischemic changes Assessment/Plan 1. Multifactorial symptomatic volume overload 2. Severe aortic stenosis - Echo similar to 12/2018, previous mean gradient 41.7 mmHg 3. HFpEF ("New onset acute diastolic heart failure") 4. Severe pulmonary hypertension 5. Obesity 6. Recurrent PE 7. Cellulitis 8. Remote drug abuse 9. Osteoarthritis 10 Diabetes 11. Tobacco use 12. Left ankle pain - ? gout - Continue nicotine replacement therapy - Continue lipitor 40 mg po daily - Continue therapeutic lovenox for now. Given recurrent PE would likely benefit from lifelong anticoagulation - Continue PRN daily IV diuretic. given 40 mg iv lasix with total of 80 meq K+ today (ordered) - Continue antibiotics per primary service - Start PRN tramadol (ordered) and avoid NSAIDs - Patient would benefit from TAVR consideration as an outpatient with Dr. Vaca. Given comorbidities and prior history, would not recommend a metallic valve. Will arrange cardiac catheterization this admission in preparation for this. Hold off on oral anti-coagulation until afterwards. Thank you for allowing me to participate in the cardiovascular care of this patient. Please do not hesitate to contact me with questions or concerns.
--- NOTE | 2019-06-14 09:10 | PN ---
Subjective Date of Service: 06/14/19 Interval History: Mr. Esquivel had an uneventful night. He feels good this morning, has no complaints. He has been walking around without difficulty, is lying almost flat , and says he is urinating often and completely. Objective Active Medications: Acetaminophen (Tylenol Tab*) 650 mg PO Q6H PRN PRN Reason: PAIN - MILD Last Admin: 06/13/19 20:59 Dose: 650 mg Albuterol/Ipratropium (Duoneb (Albuterol 2.5 Mg/Ipratropium 0.5 Mg)) 1 neb INH Q4H PRN PRN Reason: SOB/WHEEZING Atorvastatin Calcium (Lipitor*) 40 mg PO 2100 [facility] Last Admin: 06/13/19 20:57 Dose: 40 mg Enoxaparin Sodium (Lovenox(*)) 130 mg SUBCUT Q12H [facility] Last Admin: 06/14/19 02:59 Dose: 130 mg Cefazolin Sodium/Dextrose (Kefzol 2 Gm Premix In Ors(*)) 2 gm in 50 mls @ 100 mls/hr IVPB Q8HR [facility] Last Admin: 06/14/19 05:20 Dose: 100 mls/hr Mometasone Furoate/Formoterol Fumar (Dulera 200/5 Mdi*) 2 puff INH BID [facility] Last Admin: 06/14/19 07:37 Dose: Not Given Nicotine (Nicotine Patch 14 Mg/24 Hr*) 1 patch TRANSDERM DAILY [facility] Last Admin: 06/14/19 08:18 Dose: 1 patch Ondansetron HCl (Zofran Inj*) 4 mg IV Q6H PRN PRN Reason: NAUSEA Pharmacy Profile Note (Nicotine Patch Removal Note*) 1 note FOLLOW UP 2099 [facility] Last Admin: 06/13/19 20:57 Dose: 1 note Potassium Chloride (Klor Con Er Tab*) 40 meq PO ONCE ONE Stop: 06/14/19 13:01 Tiotropium [place] (Spiriva Respimat 2.5 Mcg) 2 puff INH DAILY [facility] Last Admin: 06/14/19 07:37 Dose: Not Given Tramadol HCl (Ultram*) 50 mg PO Q6H PRN PRN Reason: ankle or leg pain, any severit Vital Signs - 8 hr 06/14/19 06/14/19 03:40 05:37 Temperature 97.9 F Pulse Rate 58 60 Respiratory 20 20 Rate Blood Pressure 143/67 (mmHg) O2 Sat by Pulse 94 94 Oximetry Oxygen Devices in Use Now: Nasal Cannula Appearance: alert, resting comfortably, well appearing Eyes: No Scleral Icterus Ears/Nose/Mouth/Throat: NL Teeth, Lips, Gums Neck: - - unable to see jugular veins Respiratory: - - diffuse end expiratory wheezing, no crackles Cardiovascular: RRR, - - harsh systolic murmur RUSB, preserved S2 Abdominal: - - obese, nontender, umbilical hernia Lymphatic: No Cervical Adenopathy Extremities: - - 2+ edema b/l, L>R, full range of motion and strength in both ankles Skin: No Rash or Ulcers Neurological: NL Muscle Strength and Tone Result Diagrams: 06/14/19 06:23 06/14/19 06:23 Additional Lab and Data: Laboratory Results - last 24 hr 06/12/19 06/13/19 06/13/19 10:25 06:31 06:31 WBC 7.0 RBC 4.23 Hgb 12.6 L Hct 39 L MCV 91 MCH 30 MCHC 33 RDW 17 H Plt Count 146 L MPV 8.6 Neut % (Auto) 79.0 Lymph % (Auto) 10.7 [place] % (Auto) 9.7 Eos % (Auto) 0.4 Baso % (Auto) 0.2 Absolute Neuts (auto) 5.5 Absolute Lymphs (auto) 0.7 L Absolute Monos (auto) 0.7 Absolute Eos (auto) 0.0 Absolute Basos (auto) 0.0 Absolute Nucleated RBC 0.0 Nucleated RBC % 0.0 Sodium 139 Potassium 4.2 Chloride 104 Carbon Dioxide 29 Anion Gap 6 BUN 14 Creatinine 0.68 Est GFR ( Amer) 142.5 Est GFR (Non-Af Amer) 117.8 BUN/Creatinine Ratio 20.6 H Glucose 120 H Calcium 8.7 NT-Pro-B Natriuret Pep 1425 H Microbiology and Other Data: Microbiology 06/12/19 10:51 Blood Venous Aerobic Blood Culture - Preliminary No Growth Day 1 06/12/19 10:51 Blood Venous Anaerobic Blood Culture - Preliminary No Growth Day 1 Assess/Plan/Problems-Billing Assessment: 64 yo male PMH severe aortic stenosis, HTN, obesity, long time smoker (likely undiagnosed COPD), presenting from PCP office with progressive edema, left leg cellulitis (since a mechanical fall on ice) and shortness of breath. Found to have segmental pulmonary embolisms and be in acute HFpEF exaccerbation on baseline of likely increasingly symptomatic aortic stenosis (often pre-syncopal , HOOD). Planned LHC 06/16 in anticipation of need for aortic surgery. Diuresing. - Patient Problems (1) (HFpEF) heart failure with preserved ejection fraction Current Visit: Yes Status: Acute Code(s): I50.30 - UNSPECIFIED DIASTOLIC ( CONGESTIVE) HEART FAILURE SNOMED Code(s): 651987363 Comment: diuresing well with once daily 40mg IV lasix using caution with diuresis given tenuous nature of severe Dr. Arenas following (2) Acute respiratory failure with hypoxia Current Visit: Yes Status: Acute Code(s): J96.01 - ACUTE RESPIRATORY FAILURE WITH HYPOXIA SNOMED Code(s): 63463993 Comment: improving. secondary to PE, acute HFpEF, severe pHTN (RVSP 68mmHg) and also likely has undiagnosed COPD given substantial and current smoking with chronic cough. new dulera, spiriva. duonebs q4h prn. (3) Cellulitis Current Visit: Yes Status: Acute Code(s): L03.90 - CELLULITIS, UNSPECIFIED SNOMED Code(s): 634903982 Comment: had been treated for 14 days with doxy as an outpatient. Got 1 dose zosyn in ED (afterwhich time the erythema and warmth were modest though reportedly more angry appearing prior to the zosyn. Continue cefazolin for now with transition to keflex likely soon. (4) Pulmonary emboli Current Visit: Yes Status: Acute Code(s): I26.99 - OTHER PULMONARY EMBOLISM WITHOUT ACUTE COR PULMONALE SNOMED Code(s): 63901807 Comment: Was started on lovenox 1 mg/kg in ED and this was continued. Dr. Arenas recommended to continue this until potential LHC on Saturday 06/16 after which he can likely be transitioned to a DOAC. Duplex dopplers without DVT b/l (5) Severe aortic stenosis Current Visit: Yes Status: Acute Code(s): I35.0 - NONRHEUMATIC AORTIC (VALVE ) STENOSIS SNOMED Code(s): 84532627 Comment: Repeat ECHO still shows severe (NOEL 0.41, can't exclude bicuspid) . Has been having frequent presyncopal events, especially if he reaches above his head. HOOD. Consulted with Dr. Arenas who is also his outpatient command and control systems integrator and recommendation is to pursue LHC with anticipation that he may need TAVR or other aortic valve intervention in coming weeks. (6) Smoker Current Visit: Yes Status: Acute Code(s): F17.200 - NICOTINE DEPENDENCE, UNSPECIFIED, UNCOMPLICATED SNOMED Code(s): 83848691 Comment: nicotine patch. (7) Hypothyroid Current Visit: Yes Status: Acute Code(s): E03.9 - HYPOTHYROIDISM, UNSPECIFIED SNOMED Code(s): 33924251 Comment: TSH was very mildly elevated this morning will add on t3, t4 I suspect sick euthyroid Status and Disposition: medicine inpatient, planned LHC on 06/16. Independent with likely disposition being home.
[2019-06-14 11:52] LABS: Free T4 1.01 ng/dL (0.61-1.12)
[2019-06-14] MEDS: Atorvastatin* 40 MG TAB PO SCH (20:10)
[2019-06-14] MEDS: Nicotine Patch Removal NOTE FOLLOW UP SCH (20:11)
[2019-06-15] MEDS: Acetaminophen TAB* 325 MG PO PRN (00:10)
[2019-06-15] MEDS ORDERED: Enoxaparin(*) 150 MG/ML 1 ML SYRINGE SUBCUT SCH (03:00)
[2019-06-15] MEDS: Enoxaparin(*) 100 MG/ML SYR SUBCUT SCH (04:29)
[2019-06-15] MEDS: ceFAZolin 2 GM PREMIX in ORs 2 GM/50 ML BAG IVPB SCH ×3 (05:49→22:10)
[2019-06-15 06:20] LABS: ABS Eosinophils 0.1 10^3/ul (0-0.6); ABS Lymphocytes 1.4 10^3/ul (1.0-4.8); ABS Neutrophils 4.1 10^3/ul (1.5-7.7); Hematocrit 43 % (42-52); Lymphocyte % 21.6 %; Mean Corpuscular HGB Conc 32 g/dL (31-36); Mean Corpuscular Hemoglobin 30 pg (27-31); Mean Corpuscular Volume 92 fL (80-94); Mean Platelet Volume 8.5 fL (7.4-10.4); Nucleated Red Blood Cells % 0.1; Platelet Count 162 10^3/uL (150-450); Red Blood Count 4.73 10^6 /uL (4.18-5.48); Red Cell Distribution Width 17 % (10-15); White Blood Count 6.7 10^3/uL (3.5-10.8)
[2019-06-15 06:22] LABS: BUN/Creatinine Ratio 19.4 (8-20); Calcium 8.7 mg/dL (8.6-10.3); EGFR African American 158.5 (>60); Potassium 4.1 mmol/L (3.5-5.0)
[2019-06-15] MEDS: Nicotine PATCH 14 MG/24 HR* PATCH TRANSDERM SCH (08:04)
[2019-06-15] MEDS: Mometasone/Formoter 200/5 MDI INH SCH ×2 (08:33→20:01)
[2019-06-15] MEDS: SPIRIVA Respimat* (tiotropium) 2.5 mcg/inh Inhaler INH SCH (08:33)
--- NOTE | 2019-06-15 11:32 | PN ---
Subjective Date of Service: 06/15/19 Interval History: No overnight events. Feels good today, no complaints. Denies chest pain, palpitations, sob, orthopnea. Objective Active Medications: Acetaminophen (Tylenol Tab*) 650 mg PO Q6H PRN PRN Reason: PAIN - MILD Last Admin: 06/15/19 00:10 Dose: 650 mg Albuterol/Ipratropium (Duoneb (Albuterol 2.5 Mg/Ipratropium 0.5 Mg)) 1 neb INH Q4H PRN PRN Reason: SOB/WHEEZING Atorvastatin Calcium (Lipitor*) 40 mg PO 2100 [facility] Last Admin: 06/14/19 20:10 Dose: 40 mg Enoxaparin Sodium (Lovenox(*)) 130 mg SUBCUT Q12H [facility] Last Admin: 06/15/19 02:51 Dose: 130 mg Cefazolin Sodium/Dextrose (Kefzol 2 Gm Premix In Ors(*)) 2 gm in 50 mls @ 100 mls/hr IVPB Q8HR [facility] Last Admin: 06/15/19 05:49 Dose: 100 mls/hr Mometasone Furoate/Formoterol Fumar (Dulera 200/5 Mdi*) 2 puff INH BID [facility] Last Admin: 06/15/19 08:33 Dose: 2 puff Nicotine (Nicotine Patch 14 Mg/24 Hr*) 1 patch TRANSDERM DAILY [facility] Last Admin: 06/15/19 08:04 Dose: 1 patch Ondansetron HCl (Zofran Inj*) 4 mg IV Q6H PRN PRN Reason: NAUSEA Pharmacy Profile Note (Nicotine Patch Removal Note*) 1 note FOLLOW UP 2100 [facility] Last Admin: 06/14/19 20:11 Dose: 1 note Tiotropium [place] (Spiriva Respimat 2.5 Mcg) 2 puff INH DAILY [facility] Last Admin: 06/15/19 08:33 Dose: 2 puff Tramadol HCl (Ultram*) 50 mg PO Q6H PRN PRN Reason: ankle or leg pain, any severit Vital Signs - 8 hr 06/15/19 06/15/19 06/15/19 03:59 07:15 08:00 Temperature 97.1 F Pulse Rate 58 59 Respiratory 16 20 20 Rate Blood Pressure 143/79 (mmHg) O2 Sat by Pulse 95 91 Oximetry 06/15/19 08:35 Temperature Pulse Rate 85 Respiratory 16 Rate Blood Pressure (mmHg) O2 Sat by Pulse 92 Oximetry Oxygen Devices in Use Now: None Appearance: alert, sitting in bed playing on cell phone Eyes: No Scleral Icterus Ears/Nose/Mouth/Throat: NL Teeth, Lips, Gums Neck: NL Appearance and Movements; NL JVP Respiratory: Symmetrical Chest Expansion and Respiratory Effort Cardiovascular: - - b/l edema, L>R. harsh systolic murmur RUSB with preserved S2 Abdominal: NL Sounds; No Tenderness; No Distention Lymphatic: No Cervical Adenopathy Result Diagrams: 06/15/19 05:51 06/15/19 05:51 Additional Lab and Data: Laboratory Results - last 24 hr 06/12/19 06/13/19 06/13/19 10:25 06:31 06:31 WBC 7.0 RBC 4.23 Hgb 12.6 L Hct 39 L MCV 91 MCH 30 MCHC 33 RDW 17 H Plt Count 146 L MPV 8.6 Neut % (Auto) 79.0 Lymph % (Auto) 10.7 [place] % (Auto) 9.7 Eos % (Auto) 0.4 Baso % (Auto) 0.2 Absolute Neuts (auto) 5.5 Absolute Lymphs (auto) 0.7 L Absolute Monos (auto) 0.7 Absolute Eos (auto) 0.0 Absolute Basos (auto) 0.0 Absolute Nucleated RBC 0.0 Nucleated RBC % 0.0 Sodium 139 Potassium 4.2 Chloride 104 Carbon Dioxide 29 Anion Gap 6 BUN 14 Creatinine 0.68 Est GFR ( Amer) 142.5 Est GFR (Non-Af Amer) 117.8 BUN/Creatinine Ratio 20.6 H Glucose 120 H Calcium 8.7 NT-Pro-B Natriuret Pep 1425 H Microbiology and Other Data: Microbiology 06/12/19 10:51 Blood Venous Aerobic Blood Culture - Preliminary No Growth Day 1 06/12/19 10:51 Blood Venous Anaerobic Blood Culture - Preliminary No Growth Day 1 Assess/Plan/Problems-Billing Assessment: 64 yo male PMH severe aortic stenosis, HTN, obesity, long time smoker (likely undiagnosed COPD), presenting from PCP office with progressive edema, left leg cellulitis (since a mechanical fall on ice) and shortness of breath. Found to have segmental pulmonary embolisms and be in acute HFpEF exaccerbation on baseline of likely increasingly symptomatic aortic stenosis (often pre-syncopal , HOOD). Planned LHC 06/16 in anticipation of need for aortic surgery. Diuresing. - Patient Problems (1) (HFpEF) heart failure with preserved ejection fraction Current Visit: Yes Status: Acute Code(s): I50.30 - UNSPECIFIED DIASTOLIC ( CONGESTIVE) HEART FAILURE SNOMED Code(s): 605245501 Comment: diuresing well with once daily 40mg IV lasix ; will hold today Dr. Arenas following (2) Acute respiratory failure with hypoxia Current Visit: Yes Status: Acute Code(s): J96.01 - ACUTE RESPIRATORY FAILURE WITH HYPOXIA SNOMED Code(s): 94128430 Comment: improving. secondary to PE, acute HFpEF, severe pHTN (RVSP 68mmHg) and also likely has undiagnosed COPD given substantial and current smoking with chronic cough. new dulera, spiriva. duonebs q4h prn. (3) Cellulitis Current Visit: Yes Status: Acute Code(s): L03.90 - CELLULITIS, UNSPECIFIED SNOMED Code(s): 162133097 Comment: had been treated for 14 days with doxy as an outpatient. Got 1 dose zosyn in ED (afterwhich time the erythema and warmth were modest though reportedly more angry appearing prior to the zosyn. Continue cefazolin for now. (4) Pulmonary emboli Current Visit: Yes Status: Acute Code(s): I26.99 - OTHER PULMONARY EMBOLISM WITHOUT ACUTE COR PULMONALE SNOMED Code(s): 65548167 Comment: Was started on lovenox 1 mg/kg in ED and this was continued. Dr. Arenas recommended to continue this until potential LHC on Saturday 06/16 after which he can likely be transitioned to a DOAC. Duplex dopplers without DVT b/l (5) Severe aortic stenosis Current Visit: Yes Status: Acute Code(s): I35.0 - NONRHEUMATIC AORTIC (VALVE ) STENOSIS SNOMED Code(s): 30988623 Comment: Repeat ECHO still shows severe (NOEL 0.41, can't exclude bicuspid) . Has been having frequent presyncopal events, especially if he reaches above his head. HOOD. Consulted with Dr. Arenas who is also his outpatient pull worker and recommendation is to pursue LHC with anticipation that he may need TAVR or other aortic valve intervention in coming weeks. (6) Smoker Current Visit: Yes Status: Acute Code(s): F17.200 - NICOTINE DEPENDENCE, UNSPECIFIED, UNCOMPLICATED SNOMED Code(s): 27867664 Comment: nicotine patch. (7) Hypothyroid Current Visit: Yes Status: Acute Code(s): E03.9 - HYPOTHYROIDISM, UNSPECIFIED SNOMED Code(s): 51795310 Comment: likely sick euthyroid Status and Disposition: medicine inpatient, planned LHC on 06/16. Independent with likely disposition being home.
[2019-06-15] MEDS ORDERED: diPHENhydraMINE PO* 25 MG PO PRN (12:32)
[2019-06-15] MEDS ORDERED: Diazepam TAB(*) 5 MG PO PRN (12:32)
--- NOTE | 2019-06-15 14:03 | PN ---
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 Stop: 06/16/19 23:59 Diphenhydramine HCl (Benadryl Po*) 25 mg PO ONCE PRN PRN Reason: data lead to Store Management Trainee Stop: 06/16/19 23:59 Enoxaparin Sodium (Lovenox(*)) 120 mg SUBCUT Q12H [facility] Furosemide (Lasix Tab*) 40 mg PO DAILY [facility] Cefazolin Sodium/Dextrose (Kefzol 2 Gm Premix In Ors(*)) 2 gm in 50 mls @ 100 mls/hr IVPB Q8HR [facility] Last Admin: 06/15/19 05:49 Dose: 100 mls/hr Sodium Chloride (Ns 0.9% 1000 Ml) 1,000 mls @ 75 mls/hr IV .per rate [facility] Mometasone Furoate/Formoterol Fumar (Dulera 200/5 Mdi*) 2 puff INH BID [facility] Last Admin: 06/15/19 08:33 Dose: 2 puff Nicotine (Nicotine Patch 14 Mg/24 Hr*) 1 patch TRANSDERM DAILY [facility] Last Admin: 06/15/19 08:04 Dose: 1 patch Ondansetron HCl (Zofran Inj*) 4 mg IV Q6H PRN PRN Reason: NAUSEA Pharmacy Profile Note (Nicotine Patch Removal Note*) 1 note FOLLOW UP 2099 [facility] Last Admin: 06/14/19 20:11 Dose: 1 note Tiotropium [place] (Spiriva Respimat 2.5 Mcg) 2 puff INH DAILY [facility] Last Admin: 06/15/19 08:33 Dose: 2 puff Tramadol HCl (Ultram*) 50 mg PO Q6H PRN PRN Reason: ankle or leg pain, any severit Objective Vital Signs: Temp Pulse Resp BP Pulse Ox 97 F 56 20 143/71 92 06/15/19 11:15 06/15/19 11:15 06/15/19 11:15 06/15/19 11:15 06/15/19 08:35 Oxygen Devices in Use Now: None Appearance: nad, very pleasant Ears/Nose/Mouth/Throat: Clear Oropharnyx, Mucous Membranes Moist Neck: Trachea Midline, - - uncertain jvp Respiratory: Symmetrical Chest Expansion and Respiratory Effort, Clear to Auscultation Cardiovascular: RRR, - - 3/6 murmur best heard toward apex with soft singular s2 Abdominal: - - soft, obese Extremities: No Clubbing, Cyanosis, - - trace edema right leg, 1-2+ left leg, left ankle slightly red and painful Neurological: Alert and Oriented x 3 Laboratory Results: 06/15/19 05:51 06/15/19 05:51 INR (Anticoag Therapy) 0.96 (0.82-1.09) 06/12/19 10:25 APTT 35.1 seconds (26.0-38.0) 06/12/19 10:25 B-Natriuretic Peptide 299 pg/mL (<=100) H 06/12/19 10:25 TSH 6.96 mcIU/mL (0.34-5.60) H 06/14/19 06:23 06/12/19 06/12/19 06/12/19 10:25 16:15 18:54 Troponin I 0.03 H* 0.02 0.01 Diagnostic Imagin01/2019: 4.6 mets limited by leg discomfort, BP constanza appropriately and LVEf hyperdynamic post-stress 06/12/2019 Transthoracic Echocardiogram Summary: - Left ventricle: The cavity size is normal. Wall thickness is mildly increased. Systolic function is normal. The estimated ejection fraction is 60-65%. Wall motion is normal; there are no regional wall motion abnormalities. - Right ventricle: The cavity size is normal. Systolic function is normal. - Left atrium: The atrium is moderately dilated. - Mitral valve: The findings are consistent with mild stenosis. The mean diastolic gradient is 4.0 mm Hg. - Aortic valve: A bicuspid morphology cannot be excluded. The leaflets are moderately thickened and moderately calcified. The findings are consistent with severe stenosis. The peak systolic velocity is 4.32 m/sec. The mean systolic gradient is 44.7 mm Hg. The valve area index by the velocity-time integral method is 0.41 cm^2/m^2. - Tricuspid valve: There is mild regurgitation. - Pulmonary arteries: Systolic pressure is severely increased, estimated to be 68 mm Hg. Exam Date: 06/12/19 CTA CHEST IMPRESSION: 1. Pulmonary emboli are seen in the segmental arteries perfusing the right upper and middle lobes. 2. Coronary artery disease. Calcified aortic valve.. Mitral valve annulus calcification. 3. Interstitial pulmonary edema with a small left pleural effusion. 4. Ectatic main pulmonary artery. Severe left glenohumeral osteoarthropathy. Exam Date: 06/12/19 IMPRESSION: NO RIGHT LOWER EXTREMITY DEEP VEIN THROMBOSIS. NO LEFT LOWER EXTREMITY DEEP VEIN THROMBOSIS. EKG Data: ekg 06/12/2019 sinus rhythm 57 bpm, no ischemic changes Assessment/Plan 1. Multifactorial symptomatic volume overload - improved 2. Severe aortic stenosis - Echo similar to 12/2018, previous mean gradient 41.7 mmHg 3. HFpEF ("New onset acute diastolic heart failure") 4. Severe pulmonary hypertension 5. Obesity 6. Recurrent PE 7. Cellulitis 8. Remote drug abuse 9. Osteoarthritis 10 Diabetes 11. Tobacco use 12. Left ankle pain - Continue nicotine replacement therapy - Continue lipitor 40 mg po daily - Continue therapeutic lovenox for now. Given recurrent PE would likely benefit from lifelong anticoagulation - Start lasix 40 mg po daily (ordered). Home dose was 20 mg - Continue antibiotics per primary service - Avoid NSAIDs - Patient would benefit from TAVR consideration as an outpatient with Dr. Vaca. Given comorbidities and prior history, would not recommend a metallic valve. Diagnostic cardiac catheterization planned for tomorrow Sunday. Hold tomorrow early AM lovenox. After cardiac catheterization would change to oral anticoagulation Thank you for allowing me to participate in the cardiovascular care of this patient. Please do not hesitate to contact me with questions or concerns.
[2019-06-15] MEDS: Furosemide TAB* 40 MG PO SCH (14:25)
[2019-06-15] MEDS: Enoxaparin(*) 150 MG/ML 1 ML SYRINGE SUBCUT SCH (15:46)
[2019-06-15] MEDS: Atorvastatin* 40 MG TAB PO SCH (21:55)
[2019-06-15] MEDS: Nicotine Patch Removal NOTE FOLLOW UP SCH (21:56)
[2019-06-16] MEDS: Enoxaparin(*) 150 MG/ML 1 ML SYRINGE SUBCUT SCH (02:36)
[2019-06-16] MEDS: ceFAZolin 2 GM PREMIX in ORs 2 GM/50 ML BAG IVPB SCH ×2 (05:21→12:51)
[2019-06-16 06:21] LABS: ABS Eosinophils 0.2 10^3/ul (0-0.6); ABS Lymphocytes 1.4 10^3/ul (1.0-4.8); Eosinophil % 2.9 %; Hematocrit 41 % (42-52); Hemoglobin 13.8 g/dL (14.0-18.0); Lymphocyte % 21.1 %; Mean Corpuscular HGB Conc 33 g/dL (31-36); Mean Corpuscular Hemoglobin 30 pg (27-31); Mean Corpuscular Volume 90 fL (80-94); Mean Platelet Volume 8.1 fL (7.4-10.4); Platelet Count 183 10^3/uL (150-450); Red Cell Distribution Width 16 % (10-15); White Blood Count 6.5 10^3/uL (3.5-10.8)
[2019-06-16 06:34] LABS: BUN/Creatinine Ratio 17.3 (8-20); Calcium 8.7 mg/dL (8.6-10.3); EGFR African American 127.3 (>60); EGFR Non-African American 105.2 (>60); Magnesium 2.1 mg/dL (1.9-2.7); Potassium 3.9 mmol/L (3.5-5.0)
[2019-06-16] MEDS ORDERED: NS 0.9% 1000 ML** 1,000 ML IV SCH ×2 (07:00→11:00)
[2019-06-16] MEDS: Nicotine PATCH 14 MG/24 HR* PATCH TRANSDERM SCH (07:11)
[2019-06-16] MEDS: Furosemide TAB* 40 MG PO SCH (07:12)
[2019-06-16] MEDS ORDERED: Iohexol 350 (CONTRAST) 200 ML MDV IV ONE ×2 (08:57→10:25)
[2019-06-16] MEDS ORDERED: Heparin 2 UNITS/ML IVPREMIX* 2,000 ML IV ONE (08:57)
[2019-06-16] MEDS ORDERED: Lidocaine 1% INJ* 10 MG/ML 30 ML SDV ONE (08:57)
[2019-06-16] MEDS: SPIRIVA Respimat* (tiotropium) 2.5 mcg/inh Inhaler INH SCH (09:10)
[2019-06-16] MEDS: Mometasone/Formoter 200/5 MDI INH SCH (09:11)
[2019-06-16] MEDS ORDERED: Diazepam TAB(*) 5 MG ONE (09:42)
[2019-06-16] MEDS ORDERED: diPHENhydraMINE PO* 25 MG ONE (09:42)
[2019-06-16] MEDS ORDERED: Heparin(*) 1000 UNIT/ML 10 ML VIAL CATH LAB IV ONE (09:48)
[2019-06-16] MEDS ORDERED: Midazolam* 1 MG/ML 5 ML VIAL (5 MG) ONE (09:48)
[2019-06-16] MEDS ORDERED: VERAPAMIL 2.5 MG/ML 2 ML VIAL ** 5 mg/2 ml ONE (09:48)
[2019-06-16] MEDS ORDERED: fentaNYL* 50 MCG/ML 2 ML VIAL (100 MCG VIAL) ONE (09:48)
[2019-06-16] MEDS ORDERED: nitroGLYCERIN DRIP* 25,000 MCG/250 ML BTL ONE (09:48)
--- NOTE | 2019-06-16 11:57 | PN ---
Subjective Date of Service: 06/16/19 Interval History: f/u volume overload, aortic stenosis - cardiac catheterization today no significant cad - no chest pain, dyspnea, presyncope or syncope - diuresed 30 pounds this admission Medications Active Medications: Acetaminophen (Tylenol Tab*) 650 mg PO Q6H PRN PRN Reason: PAIN - MILD Last Admin: 06/15/19 00:10 Dose: 650 mg Albuterol/Ipratropium (Duoneb (Albuterol 2.5 Mg/Ipratropium 0.5 Mg)) 1 neb INH Q4H PRN PRN Reason: SOB/WHEEZING Atorvastatin Calcium (Lipitor*) 40 mg PO 2100 [facility] Last Admin: 06/15/19 21:55 Dose: 40 mg Furosemide (Lasix Tab*) 40 mg PO DAILY [facility] Last Admin: 06/16/19 07:12 Dose: 40 mg Cefazolin Sodium/Dextrose (Kefzol 2 Gm Premix In Ors(*)) 2 gm in 50 mls @ 100 mls/hr IVPB Q8HR [facility] Last Admin: 06/16/19 05:21 Dose: 100 mls/hr Sodium Chloride (Ns 0.9% 1000 Ml) 1,000 mls @ 75 mls/hr IV .per rate [facility] Last Admin: 06/16/19 07:13 Dose: 75 mls/hr Sodium Chloride (Ns 0.9% 1000 Ml) 1,000 mls @ 100 mls/hr IV .per rate [facility] Stop: 06/16/19 12:59 Mometasone Furoate/Formoterol Fumar (Dulera 200/5 Mdi*) 2 puff INH BID [facility] Last Admin: 06/16/19 09:11 Dose: Not Given Nicotine (Nicotine Patch 14 Mg/24 Hr*) 1 patch TRANSDERM DAILY [facility] Last Admin: 06/16/19 07:11 Dose: 1 patch Ondansetron HCl (Zofran Inj*) 4 mg IV Q6H PRN PRN Reason: NAUSEA Pharmacy Profile Note (Nicotine Patch Removal Note*) 1 note FOLLOW UP 2099 [facility] Last Admin: 06/15/19 21:56 Dose: 1 note Tiotropium [place] (Spiriva Respimat 2.5 Mcg) 2 puff INH DAILY [facility] Last Admin: 06/16/19 09:10 Dose: Not Given Tramadol HCl (Ultram*) 50 mg PO Q6H PRN PRN Reason: ankle or leg pain, any severit Last Admin: 06/15/19 22:04 Dose: 50 mg Objective Vital Signs: Temp Pulse Resp BP Pulse Ox 96.8 F 70 22 173/92 93 06/16/19 07:15 06/16/19 11:22 06/16/19 11:22 06/16/19 11:22 06/16/19 11:22 Oxygen Devices in Use Now: None Appearance: nad, very pleasant Ears/Nose/Mouth/Throat: Clear Oropharnyx, Mucous Membranes Moist Neck: Trachea Midline, - - uncertain jvp Respiratory: Symmetrical Chest Expansion and Respiratory Effort, Clear to Auscultation Cardiovascular: RRR, - - 3/6 murmur best heard toward apex with soft singular s2 Abdominal: - - soft, obese Extremities: No Clubbing, Cyanosis, - - no edema right leg, minimal edema left leg Neurological: Alert and Oriented x 3 Laboratory Results: 06/16/19 05:54 06/16/19 05:53 INR (Anticoag Therapy) 0.96 (0.82-1.09) 06/12/19 10:25 APTT 35.1 seconds (26.0-38.0) 06/12/19 10:25 B-Natriuretic Peptide 299 pg/mL (<=100) H 06/12/19 10:25 TSH 6.96 mcIU/mL (0.34-5.60) H 06/14/19 06:23 06/12/19 06/12/19 06/12/19 10:25 16:15 18:54 Troponin I 0.03 H* 0.02 0.01 Diagnostic Imagin01/2019: 4.6 mets limited by leg discomfort, BP constanza appropriately and LVEf hyperdynamic post-stress 06/12/2019 Transthoracic Echocardiogram Summary: - Left ventricle: The cavity size is normal. Wall thickness is mildly increased. Systolic function is normal. The estimated ejection fraction is 60-65%. Wall motion is normal; there are no regional wall motion abnormalities. - Right ventricle: The cavity size is normal. Systolic function is normal. - Left atrium: The atrium is moderately dilated. - Mitral valve: The findings are consistent with mild stenosis. The mean diastolic gradient is 4.0 mm Hg. - Aortic valve: A bicuspid morphology cannot be excluded. The leaflets are moderately thickened and moderately calcified. The findings are consistent with severe stenosis. The peak systolic velocity is 4.32 m/sec. The mean systolic gradient is 44.7 mm Hg. The valve area index by the velocity-time integral method is 0.41 cm^2/m^2. - Tricuspid valve: There is mild regurgitation. - Pulmonary arteries: Systolic pressure is severely increased, estimated to be 68 mm Hg. Exam Date: 06/12/19 CTA CHEST IMPRESSION: 1. Pulmonary emboli are seen in the segmental arteries perfusing the right upper and middle lobes. 2. Coronary artery disease. Calcified aortic valve.. Mitral valve annulus calcification. 3. Interstitial pulmonary edema with a small left pleural effusion. 4. Ectatic main pulmonary artery. Severe left glenohumeral osteoarthropathy. Exam Date: 06/12/19 IMPRESSION: NO RIGHT LOWER EXTREMITY DEEP VEIN THROMBOSIS. NO LEFT LOWER EXTREMITY DEEP VEIN THROMBOSIS. EKG Data: ekg 06/12/2019 sinus rhythm 57 bpm, no ischemic changes Assessment/Plan 1. Multifactorial symptomatic volume overload - resolved 2. Severe aortic stenosis - Echo similar to 12/2018, previous mean gradient 41.7 mmHg - No significant CAD on cardiac catheterization today 06/16/2019 3. HFpEF ("New onset acute diastolic heart failure") 4. Severe pulmonary hypertension 5. Obesity 6. Recurrent PE 7. Cellulitis 8. Remote drug abuse 9. Osteoarthritis 10 Diabetes 11. Tobacco use 12. Left ankle pain - Continue nicotine replacement therapy - Continue lipitor 40 mg po daily - d/c lovenox (ordered). Can start oral anticoagulation today as per Dr. Hermosillo.. Unsure how acute the PE's are. I think xarelto with or without 21 day loading dose is reasonable. - Continue lasix 40 mg po daily, home dose was 20 mg daily - Continue antibiotics per primary service - Avoid NSAIDs. Please give prescription for tramadol at discharge and have d/ c meloxican and ibuprofen - consider outpatient sleep apnea evaluation - Patient would benefit from TAVR consideration as an outpatient with Dr. Vaca and referral has been initiated - Patient has f/u cardiology appointment made 06/24 - Patient can be discharged from a cardiac standpoint Thank you for allowing me to participate in the cardiovascular care of this patient. Please do not hesitate to contact me with questions or concerns.
--- NOTE | 2019-06-16 12:45 | CATH ---
CC: Dr. Acosta; Dr. Phil Arenas; Dr. August Vaca* CATHETERIZATION REPORT: DATE OF PROCEDURE: 06/16/19 PRIMARY CARE PHYSICIAN: Dr. Acosta. WELDER ASSISTANT: Dr. Phil Arenas. PROCEDURES: Right radial artery access, bilateral selective coronary cineangiography. HISTORY: A 64-year-old male with symptomatic severe aortic stenosis. PROCEDURE ACCESS: Right radial artery sheath 6F slender. MEDICATIONS: 1. Subcu lidocaine. 2. IV Versed. 3. IV fentanyl. 4. Heparin 3000 units. 5. Nitroglycerin 300 mcg. 6. Verapamil 3 mg IA. HEMODYNAMICS: BP 157/86, final BP 141/88. ANGIOGRAPHY: Left main: The left main is large, short, has no stenosis. LAD: The LAD is large, extends past the apex, it supplies a large first diagonal branch. The LED has no stenosis. Circumflex: The circumflex is large, not dominant, with a small ramus, a large posterolateral. The circumflex has minor luminal irregularity, no significant stenosis. RCA: The RCA is large, dominant with minor proximal luminal irregularity, the PDA is large followed by smaller posterolateral. Incidentally noted is mitral annular calcification as well as calcification of the aortic valve leaflets with reduced excursion. CONCLUSION: 1. No significant obstructive coronary artery disease. 2. Successful right radial artery access. [id number]/CPS #: [id number] MTDD
[2019-06-16 13:33] VITALS: BP 148/76
--- NOTE | 2019-06-16 21:22 | DS ---
DISCHARGE SUMMARY: ADDENDUM: PHYSICAL EXAMINATION AT THE TIME OF DISCHARGE: Temperature 97.6, heart rate 73 , respiratory rate 18, pulse ox 92% on room air, blood pressure 143/69. General : Alert, well-appearing man, in no distress, with his at the bedside. HEENT: Pupils equal, round, reactive to light. Oral mucosa is moist. Neck: I am unable to see his jugular veins. Chest: He is in a regular rate and rhythm with a harsh systolic murmur and a preserved S2 at the right upper sternal border. His lungs are clear bilaterally. Abdomen: Obese, soft, nontender, nondistended with a reducible umbilical hernia. Extremities: 1+ lower extremity edema bilaterally. No erythema. The left leg is greater in diameter than the right. [id number]/CPS #: [id number] MTDD
--- NOTE | 2019-06-16 21:22 | DS ---
CC: Dr. Acosta; Dr. Phil Arenas* DISCHARGE SUMMARY: DATE OF ADMISSION: 06/12/19 DATE OF DISCHARGE: 06/16/19 PRINCIPAL DISCHARGE DIAGNOSES: 1. Volume overload. 2. Severe aortic stenosis. 3. Pulmonary emboli. 4. Severe pulmonary hypertension. 5. Cellulitis. SECONDARY DISCHARGE DIAGNOSES: 1. Tobacco use. 2. Obesity. 3. Diabetes. 4. Osteoarthritis. MEDICATIONS AT DISCHARGE: 1. KCl 10 mEq daily. 2. Mobic 15 mg daily. 3. Lasix 40 mg daily. 4. Nicotine patch 14 mg transdermally daily. 5. Xarelto 15 mg b.i.d. for 21 days, which is to be followed by Xarelto 20 mg daily. HOSPITAL COURSE BY PROBLEMS: 1. Volume overload likely multifactorial and related to worsening aortic stenosis, heart failure with preserved ejection fraction, severe pulmonary hypertension. He required IV diuresis at the time of admission and diuresed approximately 30 pounds during this admission. He is being discharged on a higher dose of Lasix than his admission dose of Lasix. 2. PE. A CT angiogram was obtained at the time of admission and he was found to have pulmonary emboli seen in the segmental arteries perfusing the right upper and middle lobes. He was started on Lovenox in anticipation of a left heart catheterization during this hospitalization. He was treated with Lovenox during his hospital stay and is being discharged on Xarelto for 15 mg for 21 days and then will need to be switched to 20 mg once a day. 3. Severe aortic stenosis. His echocardiogram on this admission showed worsening aortic stenosis and Dr. Arenas was consulted and continued to follow him during this hospitalization. He underwent left heart cath on 06/16/19 in preparation for an outpatient TAVR. His coronary arteries were unremarkable. The formal report of a cardiac catheterization is pending at the time of this dictation, but per verbal report from Dr. Velazco, his coronary arteries were clean. 4. Tobacco use. He was treated with nicotine patch during this admission and is being discharged on it. The importance of tobacco cessation was emphasized to him. 5. Cellulitis. He had been treated as an outpatient with doxycycline and was started on cefazolin during this admission. He has received 5 days of IV cefazolin and at the time of discharge, his cellulitis resolved, so he is being discharged off of antibiotics. DISPOSITION: He is being discharged to home on 06/16/19. He knows that he needs close followup with Dr. Arenas and has a followup appointment at the time of discharge. CONDITION AT THE TIME OF DISCHARGE: Stable. [id number]/[facility] #: [id number] MTDD
== END 2019-06-16 14:52 | disposition home or self-care (01) | DRG 192 ==
LOC: ED 09:45 → MEDTELE 15:02 → OBSVTOIN 06-13 11:00
PROVIDERS: ADMIT Internal Medicine; ATTEND Internal Medicine
PROC: B24BZZZ Ultrasonography of Heart with Aorta (ICD-10-PCS; 2019-06-12)
PROC: B2111ZZ Fluoroscopy of Multiple Coronary Arteries using Low Osmolar Contrast (ICD-10-PCS; principal; 2019-06-16)
DX: I11.0 Hypertensive heart disease with heart failure (principal); I26.99 Other pulmonary embolism without acute cor pulmonale; J96.01 Acute respiratory failure with hypoxia; L03.116 Cellulitis of left lower limb; I35.0 Nonrheumatic aortic (valve) stenosis; F17.210 Nicotine dependence, cigarettes, uncomplicated; I50.33 Acute on chronic diastolic (congestive) heart failure; I27.20 Pulmonary hypertension, unspecified; M10.9 Gout, unspecified; M25.572 Pain in left ankle and joints of left foot; M19.90 Unspecified osteoarthritis, unspecified site; E11.9 Type 2 diabetes mellitus without complications; E66.9 Obesity, unspecified; E03.9 Hypothyroidism, unspecified; R05 Cough; Z68.31 Body mass index [BMI] 31.0-31.9, adult; Z79.01 Long term (current) use of anticoagulants
CPT/HCPCS: 36415; 71275; 80048; 82803; 83735; 83880; 84439; 84443; 84479; 84484; 85025; 85610; 85730; 86140; 87040; 93005; 93306; 93970; 94640; 96374; 99283; A9270-GY; G0378; J0690; J1100; J1644; J1650; J1940; J2250; J2543; J3010; J3475; J3535; Q9967

== ENCOUNTER 2019-10-16 10:51 | Emergency (ER) | payer OTHER ==
--- OUTSIDE RECORDS SUMMARY | 2019-10-16 11:04 | XMS REPORT | Continuity of Care Document ---
:1955 Author Name [employer]arer, System Address Unavailable Unavailable , Care Team Providers Name Role Phone Anupama DUNCAN, Dominic Whitaker Unavailable Lo DUNCAN, Savannah Unavailable Problems No Problem Information Available Allergies and Adverse Reactions No Allergy Information Available Medications No Medication Information Available Social History No Social History Information Available Tobacco smoking consumption unknown Male Results No Known Results No Result Information Available Vital Signs No Vital Observation Information Available Advance Directives HIPAA - Patient specified Unknown. Payers [facility] [address] [address] [facility] [id number] [place] Group Number: [id number] tel: MILTON GODWIN [address] tel:
[2019-10-16] MEDS ORDERED: NS 0.9% 1000 ML** 1,000 ML IV ONE (11:08)
[2019-10-16] MEDS ORDERED: LORazepam TAB(*) 1 MG PO ONE ×2 (11:10→11:11)
--- NOTE | 2019-10-16 11:16 | ED ---
Complex/Multi-Sys Presentation - HPI Summary HPI Summary: 64-year-old male with a significant past medical history of coronary artery disease, pulmonary embolism, hypertension, or recent aortic bypass surgery done in August presents to the emergency department with today with a chief complaint of "I just don't feel right" x 3 days. patient arrives in the emergency department and is hyperventilating and diaphoretic. Patient is unable to express his symptoms however he does appear extremely anxious. Patient is restless, diaphoretic but denies fevers, chest pain, abdominal pain, shortness of breath, pain with urination, nausea, vomiting, diarrhea. Patient states he used marijuana recently for relief of his anxiety. Patient denies alcohol use. Patient denies recent long distance travel, immobilization however he did have his recent surgery in August - History Of Current Complaint Time Seen by Provider: 10/16/19 10:54 Hx Obtained From: Patient Onset/Duration: Gradual Onset, Lasting Days Timing: Constant Severity Currently: Moderate Severity Initially: Moderate - Allergies/Home Medications Allergies/Adverse Reactions: Allergies Allergy/AdvReac Type Severity Reaction Status Date / Time No Known Allergies Allergy Verified 06/12/19 09:50 Home Medications: Home Medications Potassium Chlor TAB* [Klor Con ER TAB 10 MEQ*] 10 meq PO DAILY 06/12/19 [ History Confirmed 10/16/19] Rivaroxaban TAB(*) [Xarelto 15 mg(*)] 15 mg PO BID #42 tab 06/16/19 [Rx Confirmed 10/16/19] DOXYcycline CAP(*) [DOXYcycline 100MG CAP(*)] 100 mg PO Q12H 10/16/19 [History Confirmed 10/16/19] Furosemide TAB* [Lasix TAB*] 20 mg PO DAILY 10/16/19 [History Confirmed 10/16/19 ] Hydrocodone/Acetaminophen [Hydrocodone/Acetaminophen 5-325 mg] 1 tab PO Q4H PRN 10/16/19 [History Confirmed 10/16/19] Lisinopril TAB* [Prinivil TAB*] 10 mg PO DAILY 10/16/19 [History Confirmed 10/15] Meloxicam(NF) [Mobic(NF)] 15 mg PO DAILY 10/16/19 [History Confirmed 10/16/19] Tramadol ER(NF) [Ultram HCl ER(NF)] 100 mg PO DAILY 10/16/19 [History Confirmed 10/16/19] Triamcinolone Acetonide* [Kenalog-40] 40 mg INTRAARTIC ONCE 10/16/19 [History Confirmed 10/16/19] PMH/Surg Hx/FS Hx/Imm Hx Endocrine/Hematology History: Denies: Hx Diabetes, Hx Thyroid Disease Cardiovascular History: Reports: Hx Hypercholesterolemia, Hx Hypertension, Hx Valvular Heart Disease - aortic stenosis, Other Cardiovascular Problems/ Disorders - aortic stenosis Denies: Hx Angina, Hx Coronary Artery Disease, Hx Myocardial Infarction, Hx Pacemaker/ICD, Hx Peripheral Vascular Disease Respiratory History: Reports: Hx Pneumonia - 3 years ago, Hx Pulmonary Embolism Denies: Hx Asthma, Hx Chronic Obstructive Pulmonary Disease (COPD) GI History: Denies: Hx Ulcer History: Denies: Hx Chronic Renal Failure Sensory History: Reports: Hx Contacts or Glasses Denies: Hx Hearing Aid Opthamlomology History: Reports: Hx Contacts or Glasses - Surgical History Surgery Procedure, Year, and Place: tonsillectomy Infectious Disease History: Denies: Hx Clostridium Difficile, Hx Hepatitis, Hx Human Immunodeficiency Virus (HIV), Hx of Known/Suspected MRSA, History Other Infectious Disease, Traveled Outside the [place] in Last 30 Days - Family History Known Family History: Positive: Cardiac Disease, Diabetes - Social History Alcohol Use: None Substance Use Type: Reports: None Substance Use Comment - Amount & Last Used: 8 caffinated sodas a day Smoking Status (MU): Heavy Every Day Tobacco Smoker Type: Cigarettes Amount Used/How Often: 1ppd Review of Systems Constitutional: Negative Eyes: Negative ENT: Negative Cardiovascular: Negative Respiratory: Negative Gastrointestinal: Negative Genitourinary: Negative Musculoskeletal: Negative Skin: Negative Neurological/Mental Status: Negative Positive: Anxious All Other Systems Reviewed And Are Negative: Yes Physical Exam - Summary Physical Exam Summary: Patient appears exquisitely anxious in the emergency department with hyperventilation. Patient is diaphoretic and rocking back and forth. Patient' s symptoms reversed with Ativan and deep breathing. Triage Information Reviewed: Yes Vital Signs Reviewed: Yes Appearance: Positive: Well-Appearing, No Pain Distress, Well-Nourished Skin: Positive: Warm, Skin Color Reflects Adequate Perfusion Eyes: Positive: EOMI, BENITEZ ENT: Positive: Hearing grossly normal Respiratory/Lung Sounds: Positive: Clear to Auscultation, Breath Sounds Present , Rales. Negative: Unable to speak in full sentences, Fatigue Cardiovascular: Positive: RRR, S1, S2 Abdomen Description: Positive: Nontender, Soft Bowel Sounds: Positive: Present Musculoskeletal: Positive: Strength/ROM Intact Neurological: Positive: Sensory/Motor Intact, Alert, Oriented to Person Place, Time, Normal Gait, Facial Symmetry, Speech Normal Psychiatric: Positive: Affect/Mood Appropriate, Anxious AVPU Assessment: Alert Procedures - Sedation Patient Received Moderate/Deep Sedation with Procedure: No Diagnostics - Laboratory Result Diagrams: 10/16/19 11:30 10/16/19 11:30 Lab Statement: Any lab studies that have been ordered have been reviewed, and results considered in the medical decision making process. Complex Multi-Symp Course/Dx Course Of Treatment: Patient was evaluated in the emergency department today for a generalized feeling of being unwell and anxiety. Patient's vitals were noted. He was quite anxious in the emergency department and diaphoretic. EKG was done promptly which shows no evidence of STEMI. Sinus bradycardia at a rate of 59 bpm. There are noted ST elevations in leads II, III, and AVF with no reciprocal depressions. EKG is unchanged when compared to prior. Cardiology , Dr. Rachel was consulted who agreed there is no acute process or changes in his EKG. Patient was given 2 mg of Ativan by mouth for anxiety. Laboratory studies were done which showed no significant changes or concerning findings including no leukocytosis, no electrolyte disturbance, negative d-dimer, negative troponins. BNP is elevated at 240 however this is the patient's baseline. Patient continues to be asymptomatic of chest pain or shortness of breath. Patient's symptoms appear to be due to anxiety. Patient was given 1 more milligram of Ativan IV and discharged to outpatient follow-up with [facility] after social work consult. - Diagnoses Differential Diagnoses/HQI/PQRI: Metabolic Abnormality, Other - anxiety Provider Diagnoses: Anxiety - Critical Care Time Critical Care Statement: Critical care time is provided exclusive of any time spent performing procedures. Discharge ED - Sign-Out/Discharge Documenting (check all that apply): Patient Departure - Discharge Plan Condition: Stable Disposition: HOME Patient Education Materials: Anxiety (ED) Referrals: Dominic Acosta MD [Primary Care Provider] - 3 Days Additional Instructions: Please follow up with [facility] for further evaluation and management of your anxiety. Address: [address] [place] [id number] Please return to this emergency department immediately should you develop any new or worsening symptoms including chest pain or shortness of breath. - Billing Disposition and Condition Condition: STABLE Disposition: Home - Attestation Statements Provider Attestation: I was available for consultation for this patient. I did not evaluate the patient or participate in any medical decision making or disposition decisions unless I am specifically named in the chart as having consulted on the patient. If I have consulted on the patient, please see my own ED note on the patient encounter. Beba Quevedo MD
[2019-10-16 11:50] LABS: ABS Eosinophils 0.3 10^3/ul (0-0.6); ABS Lymphocytes 1.1 10^3/ul (1.0-4.8); ABS Monocytes 0.6 10^3/ul (0-0.8); ABS Neutrophils 3.5 10^3/ul (1.5-7.7); Eosinophil % 4.7 %; Hematocrit 31 % (42-52); Hemoglobin 10.7 g/dL (14.0-18.0); Lymphocyte % 19.3 %; Mean Corpuscular HGB Conc 34 g/dL (31-36); Mean Corpuscular Hemoglobin 31 pg (27-31); Mean Corpuscular Volume 90 fL (80-94); Mean Platelet Volume 7.6 fL (7.4-10.4); Platelet Count 300 10^3/uL (150-450); Red Blood Count 3.48 10^6 /uL (4.18-5.48); Red Cell Distribution Width 20 % (10-15); White Blood Count 5.5 10^3/uL (3.5-10.8)
[2019-10-16 12:02] LABS: Albumin/Globulin Ratio 1.4 (1-3); BUN/Creatinine Ratio 14.5 (8-20); C Reactive Protein 13.48 mg/L (<8.01); Calcium 9.5 mg/dL (8.6-10.3); EGFR African American 125.3 (>60); EGFR Non-African American 103.6 (>60); Globulin 2.9 g/dL (2-4); Potassium 4.1 mmol/L (3.5-5.0); Total Bilirubin 0.4 mg/dL (0.2-1.0); Total Protein 6.9 g/dL (6.4-8.9)
[2019-10-16] MEDS ORDERED: LORazepam INJ* 2 MG/ML 1 ML VIAL IV PUSH ONE (13:49)
[2019-10-16] MEDS ORDERED: Lorazepam PYXIS KEY PRN (13:49)
[2019-10-16] MEDS ORDERED: Lorazepam PYXIS KEY ONE (13:53)
[2019-10-16 15:02] VITALS: BP 152/74
== END 2019-10-16 15:00 | disposition home or self-care (01) ==
LOC: ED 10:51
DX: F41.9 Anxiety disorder, unspecified (principal); I25.10 Atherosclerotic heart disease of native coronary artery without angina pectoris; I10 Essential (primary) hypertension; R06.02 Shortness of breath; E78.00 Pure hypercholesterolemia, unspecified; F17.210 Nicotine dependence, cigarettes, uncomplicated; R94.31 Abnormal electrocardiogram [ECG] [EKG]; Z86.711 Personal history of pulmonary embolism; Z79.899 Other long term (current) drug therapy; Z95.1 Presence of aortocoronary bypass graft; Z20.828 Contact with and (suspected) exposure to other viral communicable diseases
CPT/HCPCS: 36415; 80053; 83605; 83880; 84484; 85025; 85379; 86140; 87635; 93005; 96361; 96374; 99285; A9270-GY; J2060; U0003

== ENCOUNTER 2020-01-13 15:08 | Observation (INO) ==
[2020-01-13] MEDS ORDERED: Morphine 4 MG/ML VIAL (1 ml) IV ONE ×2 (15:20→17:09)
[2020-01-13] MEDS ORDERED: Albuterol/Ipratropium NEB.SOL (2.5/0.5 MG) 3 ML NEB.SOLN INH ONE (15:20)
[2020-01-13] MEDS ORDERED: NS 0.9% 1000 ml BAG 1,000 ML IV ONE (15:20)
[2020-01-13 15:50] LABS: ABS Eosinophils 0.3 10^3/ul (0-0.6); ABS Lymphocytes 0.9 10^3/ul (1.0-4.8); ABS Monocytes 1.3 10^3/ul (0-0.8); ABS Neutrophils 10.4 10^3/ul (1.5-7.7); Eosinophil % 2.2 %; Hematocrit 32 % (42-52); Hemoglobin 10.5 g/dL (14.0-18.0); Lymphocyte % 7.2 %; Mean Corpuscular HGB Conc 33 g/dL (31-36); Mean Corpuscular Hemoglobin 28 pg (27-31); Mean Corpuscular Volume 85 fL (80-94); Mean Platelet Volume 8.1 fL (7.4-10.4); Platelet Count 253 10^3/uL (150-450); Red Blood Count 3.76 10^6 /uL (4.18-5.48); Red Cell Distribution Width 17 % (10-15)
[2020-01-13] MEDS ORDERED: D5W IVPB SCH (16:00)
[2020-01-13] MEDS ORDERED: CLINDAMYCIN IVPB SCH (16:00)
[2020-01-13 16:09] LABS: INR 1.81 (0.82-1.09)
[2020-01-13 16:24] LABS: Albumin 3.4 g/dL (3.2-5.2); Albumin/Globulin Ratio 1.1 (1-3); BUN/Creatinine Ratio 14.5 (8-20); Calcium 8.7 mg/dL (8.6-10.3); EGFR African American 140.1 (>60); EGFR Non-African American 115.8 (>60); Potassium 4.4 mmol/L (3.5-5.0); Total Bilirubin 0.2 mg/dL (0.2-1.0); Total Protein 6.4 g/dL (6.4-8.9)
[2020-01-13] MEDS ORDERED: Lidocaine 2.5%/Prilocain 2.5% 5 GM TUBE TOPICAL ONE (16:29)
[2020-01-13] MEDS ORDERED: Clindamycin 900 MG/D5W BAG 900 MG/50 ML BAG IVPB ONE (16:30)
[2020-01-14] MEDS: Clindamycin 900 MG/D5W BAG 900 MG/50 ML BAG IVPB SCH ×3 (00:42→17:04)
[2020-01-14 06:26] LABS: ABS Basophils 0.1 10^3/ul (0-0.2); ABS Eosinophils 0.2 10^3/ul (0-0.6); ABS Lymphocytes 1.2 10^3/ul (1.0-4.8); ABS Monocytes 0.8 10^3/ul (0-0.8); ABS Neutrophils 6.1 10^3/ul (1.5-7.7); Eosinophil % 2.8 %; Hematocrit 31 % (42-52); Hemoglobin 10.2 g/dL (14.0-18.0); Lymphocyte % 14.6 %; Mean Corpuscular HGB Conc 33 g/dL (31-36); Mean Corpuscular Hemoglobin 28 pg (27-31); Mean Corpuscular Volume 86 fL (80-94); Mean Platelet Volume 8.2 fL (7.4-10.4); Platelet Count 233 10^3/uL (150-450); Red Blood Count 3.58 10^6 /uL (4.18-5.48); Red Cell Distribution Width 17 % (10-15); White Blood Count 8.5 10^3/uL (3.5-10.8)
[2020-01-14 06:48] LABS: BUN/Creatinine Ratio 12.9 (8-20); Calcium 8.3 mg/dL (8.6-10.3); EGFR African American 158.5 (>60); Potassium 4.3 mmol/L (3.5-5.0)
[2020-01-14] MEDS: Nicotine PATCH 14 MG/24 HR PATCH TRANSDERM SCH (11:12)
[2020-01-15] MEDS: Clindamycin 900 MG/D5W BAG 900 MG/50 ML BAG IVPB SCH ×3 (00:21→16:18)
[2020-01-15] MEDS: Nicotine PATCH 14 MG/24 HR PATCH TRANSDERM SCH (08:21)
[2020-01-15] MEDS ORDERED: Lidocaine 1% w EPI 1:200,000 SDV 30 ML VIAL INJ ONE (17:04)
[2020-01-16] MEDS: Clindamycin 900 MG/D5W BAG 900 MG/50 ML BAG IVPB SCH ×2 (00:57→08:20)
[2020-01-16] MEDS: Nicotine PATCH 14 MG/24 HR PATCH TRANSDERM SCH (08:09)
[2020-01-16 10:22] VITALS: BP 143/63
== END 2020-01-16 11:30 | disposition home or self-care (01) | DRG 364 ==
LOC: ED 15:08 → MEDTELE 15:08
PROVIDERS: ADMIT Internal Medicine; ATTEND Internal Medicine

== ENCOUNTER 2021-09-27 13:59 | Inpatient (IN) ==
[2021-09-27 14:33] LABS: ABS Basophils 0.1 10^3/ul (0-0.2); ABS Eosinophils 0.2 10^3/ul (0-0.6); ABS Lymphocytes 1.1 10^3/ul (1.0-4.8); ABS Monocytes 0.7 10^3/ul (0-0.8); ABS Neutrophils 3.6 10^3/ul (1.5-7.7); Eosinophil % 3.4 %; Hematocrit 21 % (42-52); Lymphocyte % 19.5 %; Mean Corpuscular HGB Conc 33 g/dL (31-36); Mean Corpuscular Hemoglobin 28 pg (27-31); Mean Corpuscular Volume 84 fL (80-94); Mean Platelet Volume 7.2 fL (7.4-10.4); Platelet Count 249 10^3/uL (150-450); Red Blood Count 2.53 10^6 /uL (4.18-5.48); Red Cell Distribution Width 17 % (10-15); White Blood Count 5.7 10^3/uL (3.5-10.8)
[2021-09-27 14:59] LABS: Activated Partial Thrombo Time 42.6 seconds (26.0-38.0); INR 1.76 (0.86-1.15)
[2021-09-27 16:17] LABS: Albumin 3.3 g/dL (3.2-5.2); Albumin/Globulin Ratio 1.6 (1-3); Calcium 7.9 mg/dL (8.6-10.3); Globulin 2.1 g/dL (2-4); Potassium 3.6 mmol/L (3.5-5.0); Total Bilirubin 0.3 mg/dL (0.2-1.0); Total Protein 5.4 g/dL (6.4-8.9); eGFR CKD-EPI 84.5 (>60)
[2021-09-27 17:17] LABS: High Sensitivity Troponin 1 Hr 19 pg/mL (<20)
[2021-09-27] MEDS ORDERED: Albuterol HFA INHALER 8 gm MDI INH PRN (19:40)
[2021-09-27] MEDS ORDERED: PEG 3000 GI LAVAGE 1 GALLON PO ONE (19:50)
[2021-09-27] MEDS ORDERED: Furosemide 40 mg/4 ml IV VIAL IV SLOW PU ONE (21:33)
[2021-09-28 06:27] LABS: ABS Eosinophils 0.2 10^3/ul (0-0.6); ABS Lymphocytes 1.4 10^3/ul (1.0-4.8); ABS Monocytes 0.8 10^3/ul (0-0.8); ABS Neutrophils 3.8 10^3/ul (1.5-7.7); Eosinophil % 3.8 %; Hematocrit 25 % (42-52); Lymphocyte % 21.9 %; Mean Corpuscular HGB Conc 33 g/dL (31-36); Mean Corpuscular Hemoglobin 28 pg (27-31); Mean Corpuscular Volume 84 fL (80-94); Mean Platelet Volume 7.7 fL (7.4-10.4); Nucleated Red Blood Cells % 0.1; Platelet Count 257 10^3/uL (150-450); Red Cell Distribution Width 17 % (10-15); White Blood Count 6.2 10^3/uL (3.5-10.8)
[2021-09-28 06:32] LABS: INR 1.32 (0.86-1.15)
[2021-09-28 06:58] LABS: Albumin 3.3 g/dL (3.2-5.2); Albumin/Globulin Ratio 1.5 (1-3); Calcium 8.3 mg/dL (8.6-10.3); Globulin 2.2 g/dL (2-4); Magnesium 1.7 mg/dL (1.9-2.7); Potassium 3.9 mmol/L (3.5-5.0); Total Bilirubin 0.5 mg/dL (0.2-1.0); Total Protein 5.5 g/dL (6.4-8.9); eGFR CKD-EPI 96.4 (>60)
[2021-09-28] MEDS ORDERED: Magnesium Sulfate 2 gm BAG 2 GM/50 ML BAG IVPB ONE (07:48)
[2021-09-28] MEDS ORDERED: Furosemide 20 mg/2 ml IV VIAL IV ONE (08:13)
[2021-09-28] MEDS: Nicotine PATCH 14 MG/24 HR PATCH TRANSDERM SCH ×2 (08:49→09:04)
[2021-09-28] MEDS ORDERED: Midazolam 10 mg/10 ml VIAL 1 mg/ml 10 ml VIAL (10 mg) ONE (14:18)
[2021-09-28] MEDS ORDERED: fentaNYL 100 mcg/2 ml 50 MCG/ML VIAL ONE (14:18)
[2021-09-29] MEDS ORDERED: Magnesium Sulfate 2 gm BAG 2 GM/50 ML BAG IVPB ONE (08:15)
[2021-09-29] MEDS: Nicotine PATCH 14 MG/24 HR PATCH TRANSDERM SCH (09:45)
[2021-09-29 09:46] LABS: ABS Eosinophils 0.2 10^3/ul (0-0.6); ABS Lymphocytes 0.9 10^3/ul (1.0-4.8); ABS Monocytes 0.8 10^3/ul (0-0.8); ABS Neutrophils 3.1 10^3/ul (1.5-7.7); Eosinophil % 3.7 %; Hematocrit 23 % (42-52); Hemoglobin 7.3 g/dL (14.0-18.0); Lymphocyte % 17.4 %; Mean Corpuscular HGB Conc 32 g/dL (31-36); Mean Corpuscular Hemoglobin 27 pg (27-31); Mean Corpuscular Volume 86 fL (80-94); Mean Platelet Volume 7.6 fL (7.4-10.4); Platelet Count 255 10^3/uL (150-450); Red Cell Distribution Width 16 % (10-15)
[2021-09-29 10:45] LABS: C Reactive Protein 57.45 mg/L (<8.01); Calcium 8.3 mg/dL (8.6-10.3); Magnesium 2.1 mg/dL (1.9-2.7); eGFR CKD-EPI 103.2 (>60)
[2021-09-29] MEDS ORDERED: Gadoteridol (CONTRAST) 279.3 MG/ML 10 ML IV ONE (13:25)
[2021-09-30 05:20] LABS: ABS Eosinophils 0.2 10^3/ul (0-0.6); ABS Lymphocytes 0.9 10^3/ul (1.0-4.8); ABS Monocytes 0.7 10^3/ul (0-0.8); ABS Neutrophils 2.3 10^3/ul (1.5-7.7); Eosinophil % 5.3 %; Hematocrit 24 % (42-52); Hemoglobin 7.8 g/dL (14.0-18.0); Lymphocyte % 22.9 %; Mean Corpuscular HGB Conc 33 g/dL (31-36); Mean Corpuscular Hemoglobin 28 pg (27-31); Mean Corpuscular Volume 85 fL (80-94); Mean Platelet Volume 7.7 fL (7.4-10.4); Nucleated Red Blood Cells % 0.1; Platelet Count 267 10^3/uL (150-450); Red Blood Count 2.84 10^6 /uL (4.18-5.48); Red Cell Distribution Width 16 % (10-15); White Blood Count 4.1 10^3/uL (3.5-10.8)
[2021-09-30 05:51] LABS: Calcium 8.4 mg/dL (8.6-10.3); Magnesium 2.2 mg/dL (1.9-2.7); Potassium 4.1 mmol/L (3.5-5.0)
[2021-09-30] MEDS: Nicotine PATCH 14 MG/24 HR PATCH TRANSDERM SCH (08:17)
[2021-09-30 11:28] VITALS: BP 114/51
== END 2021-09-30 14:00 | disposition home or self-care (01) | DRG 378 ==
LOC: ED 13:59 → MED 19:30 → SUATTDRO 19:30 → MED 09-28 00:06
PROVIDERS: ADMIT Internal Medicine; ATTEND Internal Medicine

== ENCOUNTER 2021-10-13 19:49 | Inpatient (IN) ==
[2021-10-13] MEDS ORDERED: NS 0.9% 1000 ml BAG 1,000 ML IV ONE (19:50)
[2021-10-13 20:42] LABS: ABS Eosinophils 0.2 10^3/ul (0-0.6); ABS Lymphocytes 0.8 10^3/ul (1.0-4.8); ABS Monocytes 0.6 10^3/ul (0-0.8); ABS Neutrophils 2.5 10^3/ul (1.5-7.7); Eosinophil % 5.7 %; Hematocrit 26 % (42-52); Hemoglobin 8.2 g/dL (14.0-18.0); Lymphocyte % 18.3 %; Mean Corpuscular HGB Conc 32 g/dL (31-36); Mean Corpuscular Hemoglobin 27 pg (27-31); Mean Corpuscular Volume 86 fL (80-94); Mean Platelet Volume 7.6 fL (7.4-10.4); Platelet Count 336 10^3/uL (150-450); Red Blood Count 3.03 10^6 /uL (4.18-5.48); Red Cell Distribution Width 18 % (10-15); White Blood Count 4.2 10^3/uL (3.5-10.8)
[2021-10-13 21:00] LABS: Activated Partial Thrombo Time 28.2 seconds (26.0-38.0); INR 1.1 (0.86-1.15)
[2021-10-13 21:05] LABS: High Sens Troponin Baseline 9 pg/mL (<20)
[2021-10-13 21:24] LABS: ALT 10 U/L (7-52); Albumin 3.1 g/dL (3.2-5.2); Albumin/Globulin Ratio 1.2 (1-3); Alcohol, S < 13 mg/dL (<13); Alkaline Phosphatase 85 U/L (35-149); Blood Urea Nitrogen 9 mg/dL (6-24); CO2 Carbon Dioxide 32 mmol/L (22-32); Calcium 8.4 mg/dL (8.6-10.3); Chloride 107 mmol/L (101-111); Cholesterol 165 mg/dL; Globulin 2.5 g/dL (2-4); Glucose 93 mg/dL (70-100); HDL Cholesterol 33.1 mg/dL; LDL Cholesterol 105 mg/dL; Sodium 141 mmol/L (135-145); Total Protein 5.6 g/dL (6.4-8.9); Triglycerides 134 mg/dL; eGFR CKD-EPI 102.7 (>60)
[2021-10-13 21:42] LABS: Anion Gap 2 mmol/L (2-11)
[2021-10-13] MEDS ORDERED: NS 0.9% 1000 ml BAG 1,000 ML IV SCH (21:45)
[2021-10-13] MEDS ORDERED: Iodixanol (CONTRAST) 320 MG/ML 100 ML SDV IV ONE (21:53)
[2021-10-13 22:44] LABS: PCO2 Arterial 62 mmHg (35-45)
[2021-10-13] MEDS ORDERED: Furosemide 40 mg/4 ml IV VIAL IV ONE (22:50)
[2021-10-13 22:54] LABS: PO2 Arterial < 38 mmHg (80-100)
[2021-10-13 22:56] LABS: Urine Appearance Clear; Urine Bilirubin Negative (Negative); Urine Blood Negative (Negative); Urine Color Yellow; Urine Glucose Negative (Negative); Urine Ketones Negative (Negative); Urine Nitrite Negative (Negative); Urine Protein Negative (Negative); Urine Specific Gravity 1.025 (1.002-1.030); Urine Urobilinogen Negative (Negative)
[2021-10-13 23:12] LABS: Urine Benzodiazepine Screen None Detected (None Detect); Urine Cannabinoids Screen Presumptive Positive (None Detect); Urine Opiates Screen None Detected (None Detect)
[2021-10-14] MEDS ORDERED: Furosemide 40 mg/4 ml IV VIAL IV SLOW PU ONE (00:25)
[2021-10-14] MEDS ORDERED: Lorazepam PYXIS KEY PRN (00:53)
[2021-10-14] MEDS ORDERED: LORazepam 2 mg VIAL 1 ml IV PUSH ONE (00:53)
[2021-10-14] MEDS ORDERED: LORazepam 2 mg VIAL 1 ml ONE (00:55)
[2021-10-14 01:09] LABS: PCO2 Arterial 49 mmHg (35-45); PO2 Arterial 78 mmHg (80-100)
[2021-10-14 03:17] LABS: Potassium Redraw 4.1 mmol/L (3.5-5.0)
[2021-10-14 05:12] LABS: Urine Appearance Clear; Urine Bilirubin Negative (Negative); Urine Blood Negative (Negative); Urine Color Colorless; Urine Glucose Negative (Negative); Urine Ketones Negative (Negative); Urine Nitrite Negative (Negative); Urine Protein Negative (Negative); Urine Specific Gravity 1.008 (1.002-1.030); Urine Urobilinogen Negative (Negative)
[2021-10-14 05:33] LABS: ABS Basophils 0.1 10^3/ul (0-0.2); ABS Eosinophils 0.1 10^3/ul (0-0.6); ABS Lymphocytes 1.2 10^3/ul (1.0-4.8); ABS Monocytes 0.8 10^3/ul (0-0.8); ABS Neutrophils 3.9 10^3/ul (1.5-7.7); Eosinophil % 2.4 %; Hematocrit 27 % (42-52); Hemoglobin 8.8 g/dL (14.0-18.0); Lymphocyte % 19.2 %; Mean Corpuscular HGB Conc 33 g/dL (31-36); Mean Corpuscular Hemoglobin 28 pg (27-31); Mean Corpuscular Volume 85 fL (80-94); Mean Platelet Volume 7.3 fL (7.4-10.4); Nucleated Red Blood Cells % 0.1; Platelet Count 340 10^3/uL (150-450); Red Blood Count 3.15 10^6 /uL (4.18-5.48); Red Cell Distribution Width 17 % (10-15); White Blood Count 6.2 10^3/uL (3.5-10.8)
[2021-10-14 05:58] LABS: Calcium 8.9 mg/dL (8.6-10.3); Potassium 4.1 mmol/L (3.5-5.0); eGFR CKD-EPI 97.5 (>60)
[2021-10-14 05:59] LABS: High Sensitivity Troponin 1 Hr 14 pg/mL (<20)
[2021-10-14 06:43] LABS: Hematocrit 29 % (42-52); Hemoglobin 9.2 g/dL (14.0-18.0)
[2021-10-14] MEDS ORDERED: Lidocaine 2% JELLY 6 ML TOPICAL PRN (08:47)
[2021-10-14] MEDS: Furosemide 40 mg/4 ml IV VIAL IV SCH (09:24)
[2021-10-14 10:08] LABS: T4, Total 7.18 mcg/dL (6.09-12.23)
[2021-10-14 10:10] LABS: TSH Ultra Thyroid Stim Horm 3.58 mcIU/mL (0.34-5.60)
[2021-10-14] MEDS ORDERED: Haloperidol 5 mg/ml SDV IV/IM 5 MG/ML AMP IV SLOW PU ONE (13:22)
[2021-10-14] MEDS ORDERED: Haloperidol 5 mg/ml SDV IV/IM 5 MG/ML AMP ONE (13:32)
[2021-10-14] MEDS ORDERED: Nitro 2% OINT (Nitroglycerin) 1 INCH/PAK TOPICAL SCH (14:00)
[2021-10-14] MEDS ORDERED: levETIRAcetam IV 1,500 MG in NS 0.9% 100 ml BAG 100 ML IVPB ONE (17:12)
[2021-10-14] MEDS ORDERED: Haloperidol 5 mg/ml SDV IV/IM 5 MG/ML AMP IV SLOW PU PRN (17:21)
[2021-10-14] MEDS ORDERED: Buprenorp/Nalox 4-1 MG FILM SL FILM ONE (19:31)
[2021-10-14] MEDS: Polyethylene Glycol 3350 17 GM PACKET PO SCH (22:41)
[2021-10-15 05:41] LABS: PCO2 Arterial 46 mmHg (35-45); PO2 Arterial 76 mmHg (80-100)
[2021-10-15 06:04] LABS: ABS Basophils 0.1 10^3/ul (0-0.2); ABS Eosinophils 0.2 10^3/ul (0-0.6); ABS Monocytes 0.9 10^3/ul (0-0.8); Eosinophil % 3.3 %; Hematocrit 28 % (42-52); Hemoglobin 8.9 g/dL (14.0-18.0); Lymphocyte % 20.1 %; Mean Corpuscular HGB Conc 32 g/dL (31-36); Mean Corpuscular Hemoglobin 27 pg (27-31); Mean Corpuscular Volume 84 fL (80-94); Mean Platelet Volume 7.7 fL (7.4-10.4); Platelet Count 344 10^3/uL (150-450); Red Blood Count 3.28 10^6 /uL (4.18-5.48); Red Cell Distribution Width 18 % (10-15); White Blood Count 5.2 10^3/uL (3.5-10.8)
[2021-10-15 06:42] LABS: Calcium 8.9 mg/dL (8.6-10.3); Potassium 3.6 mmol/L (3.5-5.0); eGFR CKD-EPI 103.6 (>60)
[2021-10-15 09:33] LABS: TSH Ultra Thyroid Stim Horm 4.96 mcIU/mL (0.34-5.60)
[2021-10-15] MEDS: Furosemide 40 mg/4 ml IV VIAL IV SCH (10:20)
[2021-10-15] MEDS: Magnesium Hydroxide LIQ 30 ML UDC PO SCH ×2 (10:20→19:48)
[2021-10-15] MEDS: Buprenorp/Nalox 8-2 MG FILM SL FILM SCH (10:21)
[2021-10-15] MEDS: Polyethylene Glycol 3350 17 GM PACKET PO SCH ×2 (10:21→19:50)
[2021-10-15] MEDS ORDERED: Furosemide 20 mg/2 ml IV VIAL IV SLOW PU ONE (16:16)
[2021-10-16 05:47] LABS: ABS Eosinophils 0.1 10^3/ul (0-0.6); ABS Lymphocytes 0.7 10^3/ul (1.0-4.8); ABS Monocytes 0.9 10^3/ul (0-0.8); ABS Neutrophils 3.9 10^3/ul (1.5-7.7); Eosinophil % 1.3 %; Hematocrit 29 % (42-52); Hemoglobin 9.6 g/dL (14.0-18.0); Lymphocyte % 12.4 %; Mean Corpuscular HGB Conc 33 g/dL (31-36); Mean Corpuscular Hemoglobin 27 pg (27-31); Mean Corpuscular Volume 83 fL (80-94); Mean Platelet Volume 7.3 fL (7.4-10.4); Platelet Count 372 10^3/uL (150-450); Red Blood Count 3.54 10^6 /uL (4.18-5.48); Red Cell Distribution Width 18 % (10-15); White Blood Count 5.6 10^3/uL (3.5-10.8)
[2021-10-16 06:28] LABS: Calcium 9.2 mg/dL (8.6-10.3); Potassium 3.2 mmol/L (3.5-5.0); eGFR CKD-EPI 99.7 (>60)
[2021-10-16] MEDS: KCL 20 MEQ/100 ML IVPREMIX 20 MEQ/100 ML BAG IV SCH ×2 (08:32→10:34)
[2021-10-16] MEDS: Polyethylene Glycol 3350 17 GM PACKET PO SCH ×2 (08:33→20:42)
[2021-10-16] MEDS: Furosemide 40 mg/4 ml IV VIAL IV SCH (08:33)
[2021-10-16] MEDS: Magnesium Hydroxide LIQ 30 ML UDC PO SCH ×2 (08:33→20:42)
[2021-10-16] MEDS: Buprenorp/Nalox 8-2 MG FILM SL FILM SCH (08:33)
[2021-10-16 13:37] LABS: C Reactive Protein 14.33 mg/L (<8.01)
[2021-10-16] MEDS ORDERED: Buprenorp/Nalox 4-1 MG FILM SL FILM ONE (16:39)
[2021-10-17 05:01] LABS: ABS Eosinophils 0.1 10^3/ul (0-0.6); ABS Lymphocytes 0.9 10^3/ul (1.0-4.8); Eosinophil % 2.4 %; Hematocrit 31 % (42-52); Hemoglobin 10.1 g/dL (14.0-18.0); Lymphocyte % 15.3 %; Mean Corpuscular HGB Conc 33 g/dL (31-36); Mean Corpuscular Hemoglobin 27 pg (27-31); Mean Corpuscular Volume 83 fL (80-94); Mean Platelet Volume 7.6 fL (7.4-10.4); Platelet Count 437 10^3/uL (150-450); Red Blood Count 3.72 10^6 /uL (4.18-5.48); Red Cell Distribution Width 18 % (10-15); White Blood Count 6.1 10^3/uL (3.5-10.8)
[2021-10-17 05:15] LABS: Calcium 9.6 mg/dL (8.6-10.3); Potassium 3.8 mmol/L (3.5-5.0)
[2021-10-17] MEDS ORDERED: Potassium Chlor 20 meq TAB.ER PO ONE (07:32)
[2021-10-17] MEDS: Furosemide 20 mg/2 ml IV VIAL IV SCH (09:27)
[2021-10-17] MEDS: Magnesium Hydroxide LIQ 30 ML UDC PO SCH ×2 (09:27→21:19)
[2021-10-17] MEDS: Polyethylene Glycol 3350 17 GM PACKET PO SCH ×2 (09:28→21:19)
[2021-10-17] MEDS: Buprenorp/Nalox 8-2 MG FILM SL FILM SCH (09:44)
[2021-10-17] MEDS ORDERED: PEG 3000 GI LAVAGE 1 GALLON PO ONE (14:30)
[2021-10-17] MEDS: Enoxaparin 40 MG/0.4 ML SYR SUBCUT SCH (16:07)
[2021-10-18 06:24] LABS: ABS Eosinophils 0.1 10^3/ul (0-0.6); ABS Lymphocytes 0.5 10^3/ul (1.0-4.8); ABS Monocytes 0.8 10^3/ul (0-0.8); ABS Neutrophils 4.6 10^3/ul (1.5-7.7); Hematocrit 32 % (42-52); Hemoglobin 10.3 g/dL (14.0-18.0); Lymphocyte % 8.6 %; Mean Corpuscular HGB Conc 32 g/dL (31-36); Mean Corpuscular Hemoglobin 26 pg (27-31); Mean Corpuscular Volume 83 fL (80-94); Mean Platelet Volume 7.7 fL (7.4-10.4); Platelet Count 414 10^3/uL (150-450); Red Blood Count 3.92 10^6 /uL (4.18-5.48); Red Cell Distribution Width 18 % (10-15); White Blood Count 5.9 10^3/uL (3.5-10.8)
[2021-10-18 06:47] LABS: Calcium 9.9 mg/dL (8.6-10.3); Potassium 4.3 mmol/L (3.5-5.0); eGFR CKD-EPI 68.5 (>60)
[2021-10-18] MEDS: Furosemide 20 mg/2 ml IV VIAL IV SCH (10:24)
[2021-10-18] MEDS: Magnesium Hydroxide LIQ 30 ML UDC PO SCH ×2 (10:24→20:26)
[2021-10-18] MEDS: Polyethylene Glycol 3350 17 GM PACKET PO SCH ×2 (10:26→20:26)
[2021-10-18] MEDS: Buprenorp/Nalox 8-2 MG FILM SL FILM SCH (10:26)
[2021-10-18] MEDS: Enoxaparin 40 MG/0.4 ML SYR SUBCUT SCH (15:38)
[2021-10-18] MEDS ORDERED: Ondansetron 4 mg VIAL 2 MG/ML 2 ml VIAL IV ONE (22:42)
[2021-10-19] MEDS: Buprenorp/Nalox 8-2 MG FILM SL FILM SCH (09:15)
[2021-10-19 09:22] LABS: ABS Eosinophils 0.2 10^3/ul (0-0.6); ABS Lymphocytes 1.3 10^3/ul (1.0-4.8); ABS Monocytes 0.7 10^3/ul (0-0.8); ABS Neutrophils 2.7 10^3/ul (1.5-7.7); Eosinophil % 4.6 %; Hematocrit 31 % (42-52); Hemoglobin 9.9 g/dL (14.0-18.0); Lymphocyte % 26.6 %; Mean Corpuscular HGB Conc 32 g/dL (31-36); Mean Corpuscular Hemoglobin 27 pg (27-31); Mean Corpuscular Volume 84 fL (80-94); Platelet Count 379 10^3/uL (150-450); Red Blood Count 3.69 10^6 /uL (4.18-5.48); Red Cell Distribution Width 17 % (10-15)
[2021-10-19 09:41] LABS: Calcium 9.4 mg/dL (8.6-10.3); eGFR CKD-EPI 75.3 (>60)
[2021-10-19] MEDS: Polyethylene Glycol 3350 17 GM PACKET PO SCH (10:20)
[2021-10-19] MEDS: Magnesium Hydroxide LIQ 30 ML UDC PO SCH (10:20)
[2021-10-19 11:08] VITALS: BP 136/80
[2021-10-19] MEDS: Enoxaparin 40 MG/0.4 ML SYR SUBCUT SCH (14:53)
== END 2021-10-19 14:56 | disposition home or self-care (01) | DRG 70 ==
LOC: EDHOLD 19:49 → ED 19:49 → SUATTDRO 22:44 → EDHOLD 10-14 02:43 → MEDTELE 10-14 03:31
PROVIDERS: ADMIT Nurse Practitioner Family; ATTEND Internal Medicine

== ENCOUNTER 2023-01-21 22:04 | Inpatient (IN) ==
[2023-01-21] MEDS ORDERED: Albuterol/Ipratropium NEB.SOL (2.5/0.5 MG) 3 ML NEB.SOLN INH ONE (22:14)
[2023-01-21 22:25] LABS: ABS Basophils 0.1 10^3/uL (0.0-0.1); ABS Eosinophils 0.1 10^3/uL (0.0-0.5); ABS Lymphocytes 1.4 10^3/uL (1.0-4.8); ABS Monocytes 0.9 10^3/uL (0.0-1.1); ABS Neutrophils 5.9 10^3/uL (1.5-7.6); Eosinophil % 1.1 %; Hemoglobin 13.7 g/dL (13.2-16.3); Lymphocyte % 17.2 %; Mean Corpuscular Hemoglobin 29.8 pg (27-33); Mean Corpuscular Hgb Conc 34.1 g/dL (31-36); Mean Corpuscular Volume 87.3 fL (80-97); Mean Platelet Volume 8.5 fL (7.5-11.2); Platelet Count 222 10^3/uL (150-450); Red Blood Count 4.58 10^6/uL (4.06-5.63); Red Cell Distribution Width 17.4 % (12-17); White Blood Count 8.4 10^3/uL (3.6-10.2)
[2023-01-21 22:32] LABS: Activated Partial Thrombo Time 34.9 seconds (26.0-38.0); INR 1.13 (0.88-1.18)
[2023-01-21 22:36] LABS: PCO2 Arterial 27 mmHg (35-45); PO2 Arterial 177 mmHg (80-100)
[2023-01-21] MEDS ORDERED: Lorazepam PYXIS KEY PRN (22:36)
[2023-01-21] MEDS ORDERED: LORazepam 2 mg VIAL 1 ml IV PUSH ONE (22:36)
[2023-01-21 22:41] LABS: Albumin 3.9 g/dL (3.2-5.2); Albumin/Globulin Ratio 1.3 (1-3); C Reactive Protein 26.19 mg/L (<8.01); Calcium 9.8 mg/dL (8.6-10.3); Creatinine, Serum 0.69 mg/dL (0.67-1.17); Globulin 2.9 g/dL (2-4); Potassium 3.9 mmol/L (3.5-5.0); Total Bilirubin 0.5 mg/dL (0.2-1.0); Total Protein 6.8 g/dL (6.4-8.9); eGFR CKD-EPI 102.1 (>60)
[2023-01-21] MEDS ORDERED: Iodixanol (CONTRAST) 320 MG/ML 100 ML SDV IV ONE (22:53)
[2023-01-21] MEDS ORDERED: methylPREDNISolone SOD SUCC 125 mg 2 ML VIAL IV ONE (23:05)
[2023-01-21 23:43] LABS: High Sensitivity Troponin 1 Hr 7 pg/mL (<20)
[2023-01-21 23:45] LABS: PCO2 Arterial 39 mmHg (35-45); PO2 Arterial 86 mmHg (80-100)
[2023-01-22 06:50] LABS: Venous Bicarbonate HCO3 27.4 mmol/L (24-28)
[2023-01-22 06:51] LABS: ABS Lymphocytes 0.6 10^3/uL (1.0-4.8); ABS Monocytes 0.1 10^3/uL (0.0-1.1); ABS Neutrophils 5.6 10^3/uL (1.5-7.6); Eosinophil % 0.1 %; Hematocrit 40.2 % (38-53); Hemoglobin 13.5 g/dL (13.2-16.3); Lymphocyte % 8.9 %; Mean Corpuscular Hemoglobin 29.6 pg (27-33); Mean Corpuscular Hgb Conc 33.7 g/dL (31-36); Mean Corpuscular Volume 87.7 fL (80-97); Mean Platelet Volume 8.3 fL (7.5-11.2); Platelet Count 202 10^3/uL (150-450); Red Blood Count 4.58 10^6/uL (4.06-5.63); Red Cell Distribution Width 17.5 % (12-17); White Blood Count 6.3 10^3/uL (3.6-10.2)
[2023-01-22 07:07] LABS: Calcium 9.6 mg/dL (8.6-10.3); Creatinine, Serum 0.57 mg/dL (0.67-1.17); Potassium 4.2 mmol/L (3.5-5.0); eGFR CKD-EPI 108.1 (>60)
[2023-01-22 12:49] LABS: Total T3 100 ng/dL (87-178)
[2023-01-22 12:50] LABS: Free T4 1.12 ng/dL (0.61-1.12)
[2023-01-22 12:55] LABS: TSH Ultra Thyroid Stim Horm 4.58 mcIU/mL (0.34-5.60)
[2023-01-22 13:13] LABS: Urine Appearance Clear; Urine Bilirubin Negative (Negative); Urine Blood Negative (Negative); Urine Color Yellow; Urine Glucose Negative (Negative); Urine Ketones 1+ (Negative); Urine Nitrite Negative (Negative); Urine Protein Negative (Negative); Urine Specific Gravity 1.056 (1.002-1.030); Urine Urobilinogen Negative (Negative)
[2023-01-22 13:13] LABS: Urine Benzodiazepine Screen None Detected (None Detect); Urine Cannabinoids Screen Presumptive Positive (None Detect); Urine Opiates Screen None Detected (None Detect)
[2023-01-22 13:14] LABS: Acetaminophen < 15 mcg/mL; Alcohol, S < 13 mg/dL (<13); Salicylate < 2.50 mg/dL (<30)
[2023-01-22] MEDS: Buprenorphine 2 mg SL TAB SL SCH (13:52)
[2023-01-22] MEDS ORDERED: Haloperidol 5 mg/ml SDV IV/IM 5 MG/ML AMP IV SLOW PU ONE ×2 (13:56→20:00)
[2023-01-22] MEDS ORDERED: Buprenorphine 2 mg SL TAB SL SCH (14:00)
[2023-01-22] MEDS ORDERED: Haloperidol 5 mg/ml SDV IV/IM 5 MG/ML AMP ONE (14:00)
[2023-01-22] MEDS: Albuterol/Ipratropium NEB.SOL (2.5/0.5 MG) 3 ML NEB.SOLN INH SCH ×2 (15:17→19:24)
[2023-01-22 15:22] LABS: PCO2 Arterial 45 mmHg (35-45); PO2 Arterial 86 mmHg (80-100)
[2023-01-22] MEDS: Enoxaparin 100 MG/ML SYR SUBCUT SCH (17:46)
[2023-01-22] MEDS ORDERED: Haloperidol 5 mg/ml SDV IV/IM 5 MG/ML AMP IV SLOW PU PRN (22:07)
[2023-01-22] MEDS: levETIRAcetam 500 MG IVPREMIX 500 MG/100 ML BAG IV SCH (22:58)
[2023-01-23] MEDS ORDERED: Lorazepam PYXIS KEY PRN (01:13)
[2023-01-23] MEDS ORDERED: LORazepam 2 mg VIAL 1 ml IV PUSH ONE (01:13)
[2023-01-23] MEDS ORDERED: Albuterol/Ipratropium NEB.SOL (2.5/0.5 MG) 3 ML NEB.SOLN INH SCH (05:00)
[2023-01-23 05:40] LABS: ABS Basophils 0.1 10^3/uL (0.0-0.1); ABS Lymphocytes 1.3 10^3/uL (1.0-4.8); ABS Monocytes 1.2 10^3/uL (0.0-1.1); ABS Neutrophils 8.7 10^3/uL (1.5-7.6); Eosinophil % 0.3 %; Hematocrit 39.7 % (38-53); Hemoglobin 13.4 g/dL (13.2-16.3); Lymphocyte % 11.4 %; Mean Corpuscular Hemoglobin 29.7 pg (27-33); Mean Corpuscular Hgb Conc 33.7 g/dL (31-36); Mean Corpuscular Volume 88.2 fL (80-97); Mean Platelet Volume 8.5 fL (7.5-11.2); Platelet Count 193 10^3/uL (150-450); Red Cell Distribution Width 17.6 % (12-17); White Blood Count 11.3 10^3/uL (3.6-10.2)
[2023-01-23 05:57] LABS: Calcium 9.5 mg/dL (8.6-10.3); Creatinine, Serum 0.66 mg/dL (0.67-1.17); Potassium 3.7 mmol/L (3.5-5.0); eGFR CKD-EPI 103.4 (>60)
[2023-01-23] MEDS: Albuterol/Ipratropium NEB.SOL (2.5/0.5 MG) 3 ML NEB.SOLN INH SCH ×3 (06:02→19:03)
[2023-01-23] MEDS: Enoxaparin 100 MG/ML SYR SUBCUT SCH ×2 (06:05→18:52)
[2023-01-23] MEDS ORDERED: Metoprolol Tartrate 5 mg VIAL 5 ml VIAL (1 mg/ml) IV PRN (09:16)
[2023-01-23] MEDS: Buprenorphine 2 mg SL TAB SL SCH (09:34)
[2023-01-23] MEDS: levETIRAcetam 500 MG IVPREMIX 500 MG/100 ML BAG IV SCH (09:39)
[2023-01-23] MEDS: Valproic Acid IV 1,500 MG in NS 0.9% 100 ml BAG 100 ML IVPB ONE ×2 (13:30→14:41)
[2023-01-23 13:42] LABS: Phosphorus 3.7 mg/dL (2.5-5.0)
[2023-01-23 14:52] LABS: TSH Ultra Thyroid Stim Horm 3.34 mcIU/mL (0.34-5.60)
[2023-01-23] MEDS ORDERED: Lidocaine 2% PF 10 ML AMP (OR) ONE (18:41)
[2023-01-23 18:59] LABS: Body Fluid Source Cerebral Spinal
[2023-01-23 19:06] LABS: Body Fluid Appearance Clear; Body Fluid Color Colorless; CSF Tube # 4
[2023-01-23 19:14] LABS: CSF Glucose 72 mg/dL (40-70)
[2023-01-23 20:17] LABS: Body Fluid WBC 3 /mcL
[2023-01-23 20:29] LABS: Body Fluid Mono 30 %; Body Fluid Other Cells 6; Body Fluid Total Cells Counted 10
[2023-01-23] MEDS: Valproic Acid IV 500 MG in NS 0.9% 100 ml BAG 100 ML IVPB SCH (21:06)
[2023-01-24] MEDS: Albuterol/Ipratropium NEB.SOL (2.5/0.5 MG) 3 ML NEB.SOLN INH SCH ×4 (02:12→20:20)
[2023-01-24] MEDS: Valproic Acid IV 500 MG in NS 0.9% 100 ml BAG 100 ML IVPB SCH ×3 (05:57→22:29)
[2023-01-24] MEDS: Enoxaparin 100 MG/ML SYR SUBCUT SCH (06:00)
[2023-01-24 06:51] LABS: ABS Eosinophils 0.2 10^3/uL (0.0-0.5); ABS Lymphocytes 1.2 10^3/uL (1.0-4.8); ABS Monocytes 0.8 10^3/uL (0.0-1.1); ABS Neutrophils 5.6 10^3/uL (1.5-7.6); ABS Nucleated RBC 0.01 10^3/ul; Eosinophil % 2.5 %; Hematocrit 39.5 % (38-53); Hemoglobin 13.2 g/dL (13.2-16.3); Lymphocyte % 15.2 %; Mean Corpuscular Hemoglobin 29.8 pg (27-33); Mean Corpuscular Hgb Conc 33.5 g/dL (31-36); Mean Platelet Volume 8.4 fL (7.5-11.2); Nucleated Red Blood Cells % 0.1 /100 WBC (0.0-0.4); Platelet Count 198 10^3/uL (150-450); Red Blood Count 4.44 10^6/uL (4.06-5.63); Red Cell Distribution Width 17.9 % (12-17); White Blood Count 7.8 10^3/uL (3.6-10.2)
[2023-01-24 07:06] LABS: Calcium 8.8 mg/dL (8.6-10.3); Creatinine, Serum 0.63 mg/dL (0.67-1.17); Potassium 3.8 mmol/L (3.5-5.0); eGFR CKD-EPI 104.9 (>60)
[2023-01-24] MEDS: Buprenorphine 2 mg SL TAB SL SCH (09:23)
[2023-01-24] MEDS ORDERED: Acetaminophen IV 1 GM/100ML 1,000 MG/100 ML BAG IV ONE (21:41)
[2023-01-25] MEDS: Albuterol/Ipratropium NEB.SOL (2.5/0.5 MG) 3 ML NEB.SOLN INH SCH ×4 (00:01→19:29)
[2023-01-25] MEDS: Valproic Acid IV 500 MG in NS 0.9% 100 ml BAG 100 ML IVPB SCH ×2 (05:06→15:30)
[2023-01-25 06:09] LABS: ABS Eosinophils 0.4 10^3/uL (0.0-0.5); ABS Lymphocytes 1.6 10^3/uL (1.0-4.8); ABS Monocytes 0.8 10^3/uL (0.0-1.1); ABS Neutrophils 5.2 10^3/uL (1.5-7.6); ABS Nucleated RBC 0.01 10^3/ul; Eosinophil % 5.3 %; Hematocrit 39.6 % (38-53); Hemoglobin 13.4 g/dL (13.2-16.3); Lymphocyte % 19.4 %; Mean Corpuscular Hgb Conc 33.9 g/dL (31-36); Mean Corpuscular Volume 88.5 fL (80-97); Mean Platelet Volume 8.4 fL (7.5-11.2); Nucleated Red Blood Cells % 0.1 /100 WBC (0.0-0.4); Platelet Count 207 10^3/uL (150-450); Red Blood Count 4.47 10^6/uL (4.06-5.63); Red Cell Distribution Width 17.9 % (12-17)
[2023-01-25 06:25] LABS: Creatinine, Serum 0.69 mg/dL (0.67-1.17); Potassium 3.8 mmol/L (3.5-5.0); eGFR CKD-EPI 102.1 (>60)
[2023-01-25] MEDS ORDERED: Magnesium Hydroxide LIQ 30 ML UDC PO ONE (12:28)
[2023-01-26 00:55] LABS: HSV 1 PCR, CSF Negative (Negative); HSV 2 PCR, CSF Negative (Negative)
[2023-01-26] MEDS: Albuterol/Ipratropium NEB.SOL (2.5/0.5 MG) 3 ML NEB.SOLN INH SCH ×4 (01:00→20:37)
[2023-01-26] MEDS ORDERED: Valproic Acid IV 1,000 MG in NS 0.9% 100 ml BAG 100 ML IVPB ONE (03:20)
[2023-01-26 09:36] LABS: Calcium 9.5 mg/dL (8.6-10.3); Creatinine, Serum 0.72 mg/dL (0.67-1.17); Magnesium 2.1 mg/dL (1.9-2.7); Potassium 3.8 mmol/L (3.5-5.0); eGFR CKD-EPI 100.8 (>60)
[2023-01-26 10:13] LABS: ABS Basophils 0.1 10^3/uL (0.0-0.1); ABS Eosinophils 0.8 10^3/uL (0.0-0.5); ABS Lymphocytes 3.4 10^3/uL (1.0-4.8); ABS Monocytes 1.2 10^3/uL (0.0-1.1); ABS Neutrophils 8.6 10^3/uL (1.5-7.6); ABS Nucleated RBC 0.02 10^3/ul; Eosinophil % 5.7 %; Hematocrit 44.5 % (38-53); Hemoglobin 14.8 g/dL (13.2-16.3); Mean Corpuscular Hemoglobin 29.5 pg (27-33); Mean Corpuscular Hgb Conc 33.3 g/dL (31-36); Mean Corpuscular Volume 88.4 fL (80-97); Mean Platelet Volume 9.2 fL (7.5-11.2); Nucleated Red Blood Cells % 0.2 /100 WBC (0.0-0.4); Platelet Count 204 10^3/uL (150-450); Red Blood Count 5.03 10^6/uL (4.06-5.63)
[2023-01-26 15:30] LABS: CSF West Nile Virus IgG Ab Negative (Negative); CSF West Nile Virus IgM Ab Negative (Negative)
[2023-01-27] MEDS: Albuterol/Ipratropium NEB.SOL (2.5/0.5 MG) 3 ML NEB.SOLN INH SCH ×4 (01:42→19:15)
[2023-01-27 08:48] LABS: ABS Eosinophils 0.4 10^3/uL (0.0-0.5); ABS Lymphocytes 0.9 10^3/uL (1.0-4.8); ABS Monocytes 0.7 10^3/uL (0.0-1.1); ABS Neutrophils 7.2 10^3/uL (1.5-7.6); Eosinophil % 4.6 %; Hematocrit 42.9 % (38-53); Hemoglobin 14.5 g/dL (13.2-16.3); Lymphocyte % 9.9 %; Mean Corpuscular Hemoglobin 29.9 pg (27-33); Mean Corpuscular Hgb Conc 33.9 g/dL (31-36); Mean Corpuscular Volume 88.2 fL (80-97); Mean Platelet Volume 8.6 fL (7.5-11.2); Platelet Count 186 10^3/uL (150-450); Red Blood Count 4.86 10^6/uL (4.06-5.63); Red Cell Distribution Width 18.3 % (12-17); White Blood Count 9.3 10^3/uL (3.6-10.2)
[2023-01-27 09:03] LABS: Calcium 9.2 mg/dL (8.6-10.3); Creatinine, Serum 0.68 mg/dL (0.67-1.17); Potassium 3.9 mmol/L (3.5-5.0); eGFR CKD-EPI 102.5 (>60)
[2023-01-27] MEDS ORDERED: Thiamine 100 MG/ML 2 ml VIAL 100 MG in NS 0.9% 50 ML 50 ML IV SCH (15:00)
[2023-01-27 17:47] LABS: B. burgdorferi PCR Negative (Negative); B. garinii/B. afzellii PCR Negative (Negative); Lyme Disease Source CSF
[2023-01-28] MEDS ORDERED: Ziprasidone IM 20 mg VIAL 1 ml VIAL IM ONE (00:40)
[2023-01-28] MEDS: Albuterol/Ipratropium NEB.SOL (2.5/0.5 MG) 3 ML NEB.SOLN INH SCH ×3 (01:28→13:47)
[2023-01-28] MEDS ORDERED: Thiamine 100 MG/ML 2 ml VIAL 500 MG in NS 0.9% 250 ml 250 ML IV ONE (07:00)
[2023-01-28 13:51] LABS: ABS Eosinophils 0.4 10^3/uL (0.0-0.5); ABS Lymphocytes 1.2 10^3/uL (1.0-4.8); ABS Monocytes 0.8 10^3/uL (0.0-1.1); ABS Neutrophils 3.5 10^3/uL (1.5-7.6); Eosinophil % 6.9 %; Hemoglobin 13.9 g/dL (13.2-16.3); Lymphocyte % 20.8 %; Mean Corpuscular Hemoglobin 29.4 pg (27-33); Mean Corpuscular Hgb Conc 33.2 g/dL (31-36); Mean Corpuscular Volume 88.5 fL (80-97); Mean Platelet Volume 8.6 fL (7.5-11.2); Platelet Count 178 10^3/uL (150-450); Red Blood Count 4.75 10^6/uL (4.06-5.63); Red Cell Distribution Width 17.9 % (12-17); White Blood Count 5.8 10^3/uL (3.6-10.2)
[2023-01-28] MEDS ORDERED: Albuterol/Ipratropium NEB.SOL (2.5/0.5 MG) 3 ML NEB.SOLN INH PRN ×3 (13:51→14:00)
[2023-01-28 14:08] LABS: Calcium 8.8 mg/dL (8.6-10.3); Creatinine, Serum 0.75 mg/dL (0.67-1.17); Magnesium 1.9 mg/dL (1.9-2.7); Potassium 3.9 mmol/L (3.5-5.0); eGFR CKD-EPI 99.5 (>60)
[2023-01-28] MEDS ORDERED: OLANZapine IM (NF) 10 MG VIAL IM PRN (17:34)
[2023-01-28] MEDS: Valproic Acid LIQ 250 MG/5 ML UDC PO SCH (21:17)
[2023-01-28] MEDS ORDERED: Lorazepam PYXIS KEY PRN (23:24)
[2023-01-28] MEDS ORDERED: LORazepam 2 mg VIAL 1 ml IV PUSH ONE (23:24)
[2023-01-29 06:15] LABS: ABS Basophils 0.1 10^3/uL (0.0-0.1); ABS Eosinophils 0.3 10^3/uL (0.0-0.5); ABS Lymphocytes 1.8 10^3/uL (1.0-4.8); ABS Monocytes 0.8 10^3/uL (0.0-1.1); ABS Neutrophils 3.2 10^3/uL (1.5-7.6); Eosinophil % 4.9 %; Hematocrit 39.9 % (38-53); Hemoglobin 13.4 g/dL (13.2-16.3); Lymphocyte % 29.1 %; Mean Corpuscular Hemoglobin 29.6 pg (27-33); Mean Corpuscular Hgb Conc 33.5 g/dL (31-36); Mean Corpuscular Volume 88.4 fL (80-97); Mean Platelet Volume 8.9 fL (7.5-11.2); Nucleated Red Blood Cells % 0.1 /100 WBC (0.0-0.4); Platelet Count 154 10^3/uL (150-450); Red Blood Count 4.52 10^6/uL (4.06-5.63); Red Cell Distribution Width 18.7 % (12-17); White Blood Count 6.2 10^3/uL (3.6-10.2)
[2023-01-29 06:41] LABS: Calcium 8.8 mg/dL (8.6-10.3); Creatinine, Serum 0.66 mg/dL (0.67-1.17); Potassium 3.5 mmol/L (3.5-5.0); eGFR CKD-EPI 103.4 (>60)
[2023-01-29] MEDS: Valproic Acid LIQ 250 MG/5 ML UDC PO SCH ×2 (09:52→21:21)
[2023-01-29] MEDS: Thiamine 100 MG/ML 2 ml VIAL 500 MG in NS 0.9% 250 ml 250 ML IV SCH (12:42)
[2023-01-29] MEDS ORDERED: OLANZapine IM (NF) 10 MG VIAL IM PRN ×2 (14:28→16:59)
[2023-01-30 05:55] LABS: ABS Eosinophils 0.3 10^3/uL (0.0-0.5); ABS Lymphocytes 1.4 10^3/uL (1.0-4.8); ABS Monocytes 0.9 10^3/uL (0.0-1.1); ABS Neutrophils 2.9 10^3/uL (1.5-7.6); Eosinophil % 4.9 %; Hematocrit 39.6 % (38-53); Hemoglobin 13.3 g/dL (13.2-16.3); Lymphocyte % 26.3 %; Mean Corpuscular Hgb Conc 33.7 g/dL (31-36); Mean Corpuscular Volume 89.1 fL (80-97); Mean Platelet Volume 8.7 fL (7.5-11.2); Nucleated Red Blood Cells % 0.1 /100 WBC (0.0-0.4); Platelet Count 163 10^3/uL (150-450); Red Blood Count 4.44 10^6/uL (4.06-5.63); Red Cell Distribution Width 18.3 % (12-17); White Blood Count 5.5 10^3/uL (3.6-10.2)
[2023-01-30 06:11] LABS: Calcium 8.7 mg/dL (8.6-10.3); Creatinine, Serum 0.81 mg/dL (0.67-1.17); Magnesium 2.1 mg/dL (1.9-2.7); Phosphorus 3.3 mg/dL (2.5-5.0); eGFR CKD-EPI 97.2 (>60)
[2023-01-30] MEDS: Valproic Acid LIQ 250 MG/5 ML UDC PO SCH ×2 (09:57→19:41)
[2023-01-30] MEDS: Nicotine PATCH 14 MG/24 HR PATCH TRANSDERM SCH (09:57)
[2023-01-30] MEDS: Thiamine 100 MG/ML 2 ml VIAL 500 MG in NS 0.9% 250 ml 250 ML IV SCH (09:59)
[2023-01-30] MEDS ORDERED: Nicotine GUM 4MG FRUIT FLAVOR PO PRN (21:16)
[2023-01-30] MEDS: OLANZapine IM (NF) 10 MG VIAL IM PRN ×2 (21:25→23:26)
[2023-01-30] MEDS ORDERED: OLANZapine IM (NF) 10 MG VIAL IM ONE (23:21)
[2023-01-31] MEDS: Nicotine PATCH 14 MG/24 HR PATCH TRANSDERM SCH (09:13)
[2023-01-31] MEDS: Valproic Acid LIQ 250 MG/5 ML UDC PO SCH ×2 (09:16→19:21)
[2023-01-31] MEDS: Thiamine 100 MG/ML 2 ml VIAL 500 MG in NS 0.9% 250 ml 250 ML IV SCH (09:18)
[2023-02-01] MEDS: Nicotine PATCH 14 MG/24 HR PATCH TRANSDERM SCH (10:36)
[2023-02-01] MEDS: Valproic Acid LIQ 250 MG/5 ML UDC PO SCH ×2 (10:36→20:16)
[2023-02-01] MEDS: Thiamine 100 MG/ML 2 ml VIAL 500 MG in NS 0.9% 250 ml 250 ML IV SCH (20:19)
[2023-02-02 05:59] LABS: ABS Eosinophils 0.3 10^3/uL (0.0-0.5); ABS Lymphocytes 1.6 10^3/uL (1.0-4.8); ABS Monocytes 1.1 10^3/uL (0.0-1.1); ABS Neutrophils 3.1 10^3/uL (1.5-7.6); Eosinophil % 5.5 %; Hematocrit 37.5 % (38-53); Hemoglobin 12.5 g/dL (13.2-16.3); Lymphocyte % 26.7 %; Mean Corpuscular Hemoglobin 29.6 pg (27-33); Mean Corpuscular Hgb Conc 33.3 g/dL (31-36); Platelet Count 169 10^3/uL (150-450); Red Blood Count 4.21 10^6/uL (4.06-5.63); White Blood Count 6.2 10^3/uL (3.6-10.2)
[2023-02-02 06:26] LABS: Calcium 8.6 mg/dL (8.6-10.3); Creatinine, Serum 0.94 mg/dL (0.67-1.17); Potassium 3.9 mmol/L (3.5-5.0); eGFR CKD-EPI 89.4 (>60)
[2023-02-02] MEDS: Nicotine PATCH 14 MG/24 HR PATCH TRANSDERM SCH (10:09)
[2023-02-02 10:13] LABS: AGNA-1, CSF Negative (Negative); ANNA-1, CSF Negative (Negative); ANNA-2, CSF Negative (Negative); ANNA-3, CSF Negative (Negative); Amphiphysin Ab, CSF Negative (Negative); CRMP-5-IgG, CSF Negative (Negative); IFA Notes None.; PCA-1, CSF Negative (Negative); PCA-2, CSF Negative (Negative); PCA-Tr, CSF Negative (Negative)
[2023-02-02] MEDS: Valproic Acid LIQ 250 MG/5 ML UDC PO SCH (10:18)
[2023-02-02 14:34] VITALS: BP 118/89
== END 2023-02-02 15:10 | disposition home or self-care (01) | DRG 92 ==
LOC: ED 22:04 → EDHOLD 22:04 → SUATTDRO 01-22 12:06 → MEDTELE 01-22 13:31
PROVIDERS: ADMIT Internal Medicine; ATTEND Internal Medicine